=== PATIENT | female | born 1990 | race Caucasian/White ===

== ENCOUNTER 2017-09-24 11:52 | Emergency (ER) | payer MEDICAID ==
[~2017-09-24] VITALS: Ht 160 cm; Wt 56.7 kg
--- NOTE | 2017-09-24 12:14 | NUR ---
SAMANTHA QA SOFTWARE TESTER AT BEDSIDE FOR EVAL.
--- NOTE | 2017-09-24 12:25 | NUR ---
OUTSIDE INSTALLATION MACHINIST AT BEDSIDE FOR BLOOD DRAW.
[2017-09-24 12:30] LABS: BASOPHILS # (AUTO) 0.1 /CMM (0.0-0.2); EOSINOPHILS # (AUTO) 0.1 /CMM (0.0-0.7); MONOCYTES # (AUTO) 1.1 /CMM (0.1-1.30); RDW COEFFICIENT OF VARIATION 13.7 (11.5-15.0)
[2017-09-24] MEDS ORDERED: IV NS 0.9% 1,000 ML BAG IV ONE (12:30)
[2017-09-24 12:34] LABS: BASOPHILS % (AUTO) 1.1 % (0.0-2.0); EOSINOPHILS % (AUTO) 1.3 % (0.0-6.0); HEMATOCRIT 39 % (33-45); LYMPHOCYTES % (AUTO) 16.2 % (20.0-44.0); MEAN CORPUSCULAR HEMOGLOBIN 35 PG (26.0-33.0); MEAN CORPUSCULAR HGB CONC 34 g/dl (31.0-36.0); MEAN CORPUSCULAR VOLUME 103 fL (82-100); MONOCYTES % (AUTO) 17.4 % (2.0-12.0); NEUTROPHILS # (AUTO) 4.2 /CMM (1.8-8.9); PLATELET COUNT (AUTO) 151 /CMM (150-450); RED BLOOD CELL COUNT(AUTO) 3.75 MIL/uL (4.0-5.2); WHITE BLOOD COUNT (AUTO) 6.5 K/uL (4.3-11.0)
--- NOTE | 2017-09-24 12:35 | NUR ---
PT TO RADIOLOGY FOR HEAD CT SCAN VIA WHEELCHAIR.
[2017-09-24 12:44] LABS: INR 0.89 (0.87-1.13); PROTHROMBIN TIME 9.3 SECS (9.5-12.7)
[2017-09-24 12:48] LABS: ALBUMIN 3.7 g/dL (3.4-5.0); BILIRUBIN,DIRECT 0.3 mg/dL (0.0-0.2); BILIRUBIN,TOTAL 0.8 mg/dL (0.2-1.0); CALCIUM, SERUM 9.3 mg/dL (8.5-10.1); CREATININE 0.6 mg/dL (0.6-1.3)
[2017-09-24 12:49] LABS: POTASSIUM 2.7 mmol/L (3.5-5.1)
[2017-09-24] MEDS ORDERED: POTASSIUM CHLORIDE 20 MEQ TAB.PRT.SR PO ONE ×3 (12:54→13:00)
[2017-09-24 13:26] LABS: APPEARANCE,URINE Clear (CLEAR); BILIRUBIN,URINE MODERATE (NEGATIVE); BLOOD, URINE Negative Ery/uL (NEGATIVE); COLOR,URINE Dark (YELLOW); KETONES,URINE 40 (NEGATIVE); LEUKOCYTE ESTERASE ,URINE Trace (NEGATIVE); NITRITE, URINE Negative (NEGATIVE); PROTEIN,URINE 30 mg/dl (NEGATIVE); UGLUCOSE Negative (NEGATIVE)
[2017-09-24 13:30] LABS: BACTERIA,URINE Few /HPF (None Seen); RBC,URINE 0-2 /HPF (0-2); SQUAMOUS EPITHELIAL CELL,UR Few /HPF (None Seen)
[2017-09-24 13:32] LABS: D-DIMER 0.22 mg/L(FEU (0.17-0.50)
[2017-09-24 14:21] VITALS: BP 97/84
--- NOTE | 2017-09-24 14:21 | NUR ---
Patient discharged to home in stable condition. Written and verbal after care instructions given. Patient verbalizes understanding of instruction.IV removed. Catheter intact and site benign. Pressure and 4x4 applied to site. No bleeding noted.
== END 2017-09-24 14:22 | disposition home or self-care (01) ==
LOC: ER 11:54
DX: E87.6 Hypokalemia (principal); R74.0 Nonspecific elevation of levels of transaminase and lactic acid dehydrogenase [LDH]; M79.81 Nontraumatic hematoma of soft tissue; F41.9 Anxiety disorder, unspecified; F17.200 Nicotine dependence, unspecified, uncomplicated; R79.1 Abnormal coagulation profile; R40.4 Transient alteration of awareness
CPT/HCPCS: 36415; 70450; 71010; 80048; 80076; 80305; 81001; 83615; 84703; 85025; 85378; 85385; 85730; 86880; 93005; 99285; A4606; J7030; Z7610; 81000-TC

== ENCOUNTER 2019-02-08 19:17 | Emergency (ER) | payer SELFPAY ==
[~2019-02-08] VITALS: Ht 162.6 cm; Wt 61.7 kg
[2019-02-08] MEDS ORDERED: LORAZEPAM INJ 2 MG/ML VIAL IV ONE ×2 (20:00→21:00)
[2019-02-08] MEDS ORDERED: IV NS 0.9% 1,000 ML BAG IV ONE (20:00)
[2019-02-08] MEDS ORDERED: ONDANSETRON HCL/PF 4 MG/2 ML VIAL IV ONE (20:00)
[2019-02-08] MEDS ORDERED: ONDANSETRON HCL/PF 4 MG/2 ML VIAL ONE (20:03)
[2019-02-08] MEDS ORDERED: LORAZEPAM INJ 2 MG/ML VIAL ONE ×2 (20:04→20:48)
[2019-02-08 20:14] LABS: BASOPHILS % (AUTO) 0.5 % (0.0-2.0); EOSINOPHILS % (AUTO) 0.6 % (0.0-6.0); HEMATOCRIT 39 % (33-45); HEMOGLOBIN 13.3 g/dL (11.5-14.8); LYMPHOCYTES # (AUTO) 1.5 /CMM (0.8-4.8); LYMPHOCYTES % (AUTO) 41.5 % (20.0-44.0); MEAN CORPUSCULAR HGB CONC 34 g/dl (31.0-36.0); MEAN CORPUSCULAR VOLUME 102 fL (82-100); MONOCYTES # (AUTO) 0.4 /CMM (0.1-1.30); MONOCYTES % (AUTO) 9.9 % (2.0-12.0); NEUTROPHILS # (AUTO) 1.7 /CMM (1.8-8.9); NEUTROPHILS % (AUTO) 47.5 % (43.0-81.0); PLATELET COUNT (AUTO) 156 /CMM (150-450); RED BLOOD CELL COUNT(AUTO) 3.82 MIL/uL (4.0-5.2); WHITE BLOOD COUNT (AUTO) 3.6 K/uL (4.3-11.0)
[2019-02-08 20:31] LABS: CALCIUM, SERUM 8.9 mg/dL (8.5-10.1); CREATININE 0.5 mg/dL (0.6-1.3); POTASSIUM 4.3 mmol/L (3.5-5.1)
[2019-02-08 20:36] LABS: ALBUMIN 3.9 g/dL (3.4-5.0); BILIRUBIN,DIRECT 0.1 mg/dL (0.0-0.2); BILIRUBIN,TOTAL 0.4 mg/dL (0.2-1.0); TOTAL PROTEIN, SERUM 8.1 g/dL (6.4-8.2)
[2019-02-08 22:17] VITALS: BP 125/72
== END 2019-02-08 21:50 | disposition home or self-care (01) ==
LOC: ER 19:20
DX: F10.129 Alcohol abuse with intoxication, unspecified (principal); R11.2 Nausea with vomiting, unspecified; F41.9 Anxiety disorder, unspecified; F17.200 Nicotine dependence, unspecified, uncomplicated; Y90.9 Presence of alcohol in blood, level not specified
CPT/HCPCS: 36415; 80048; 80076; 83690; 85025; 96361; 96374; 96375; 96376; 99283; J2060 ×2; J2405; J7030

== ENCOUNTER 2019-03-16 09:28 | Emergency (ER) | payer SELFPAY ==
[~2019-03-16] VITALS: Ht 160 cm; Wt 57.2 kg
--- NOTE | 2019-03-16 10:05 | NUR ---
BIB SELF FOR ALCOHOL WITHDRAWAL, NO ETOH FOR 28 HRS PER PT. TREMORS, ANXIETY & ABD PAIN NO VOMITING AND DIARRHEA PER PT, +NAUSEA, TO ER BED 10, HOOKED TO MONITOR, CHANGED TO GOWN, PROVIDED W WARM BLANKET, ONEYDA GARBER AT BEDSIDE
[2019-03-16] MEDS ORDERED: FOLIC ACID 1 MG TABLET ONE (10:17)
[2019-03-16] MEDS ORDERED: THIAMINE HCL 100 MG TABLET ONE (10:18)
[2019-03-16] MEDS ORDERED: IV D5/0.45 NACL 500 ML IV ONE (10:30)
[2019-03-16] MEDS ORDERED: DIAZEPAM 5 MG/ML 2 ML DISP.SYRIN IV ONE ×2 (10:30→12:00)
[2019-03-16] MEDS ORDERED: FOLIC ACID 1 MG TABLET PO ONE (10:30)
[2019-03-16] MEDS ORDERED: IV NS 0.9% 1,000 ML BAG IV ONE (10:30)
[2019-03-16] MEDS ORDERED: THIAMINE HCL 100 MG TABLET PO ONE (10:30)
[2019-03-16 10:32] LABS: BASOPHILS % (AUTO) 0.7 % (0.0-2.0); EOSINOPHILS % (AUTO) 0.1 % (0.0-6.0); HEMATOCRIT 42 % (33-45); HEMOGLOBIN 14.4 g/dL (11.5-14.8); LYMPHOCYTES # (AUTO) 0.9 /CMM (0.8-4.8); LYMPHOCYTES % (AUTO) 12.9 % (20.0-44.0); MEAN CORPUSCULAR HGB CONC 34 g/dl (31.0-36.0); MEAN CORPUSCULAR VOLUME 101 fL (82-100); MONOCYTES # (AUTO) 0.4 /CMM (0.1-1.30); MONOCYTES % (AUTO) 6.2 % (2.0-12.0); NEUTROPHILS # (AUTO) 5.5 /CMM (1.8-8.9); NEUTROPHILS % (AUTO) 80.1 % (43.0-81.0); PLATELET COUNT (AUTO) 205 /CMM (150-450); RED BLOOD CELL COUNT(AUTO) 4.13 MIL/uL (4.0-5.2); WHITE BLOOD COUNT (AUTO) 6.9 K/uL (4.3-11.0)
[2019-03-16 10:41] LABS: CALCIUM, SERUM 8.8 mg/dL (8.5-10.1); CREATININE 0.7 mg/dL (0.6-1.3)
[2019-03-16 10:46] LABS: ALBUMIN 4.4 g/dL (3.4-5.0); BILIRUBIN,DIRECT 0.3 mg/dL (0.0-0.2); BILIRUBIN,TOTAL 1.3 mg/dL (0.2-1.0); TOTAL PROTEIN, SERUM 8.3 g/dL (6.4-8.2)
[2019-03-16] MEDS ORDERED: DIAZEPAM 5 MG/ML 2 ML DISP.SYRIN ONE ×2 (11:05→12:04)
[2019-03-16] MEDS ORDERED: ONDANSETRON HCL/PF 4 MG/2 ML VIAL IV ONE (12:00)
[2019-03-16] MEDS ORDERED: KETOROLAC TROMETHAMINE INJ 30 MG/ML VIAL IV ONE (12:00)
[2019-03-16] MEDS ORDERED: ONDANSETRON HCL/PF 4 MG/2 ML VIAL ONE (12:03)
[2019-03-16] MEDS ORDERED: KETOROLAC TROMETHAMINE INJ 30 MG/ML VIAL ONE (12:03)
[2019-03-16] MEDS ORDERED: CHLORDIAZEPOXIDE HCL 25 MG CAPSULE PO ONE (12:30)
[2019-03-16] MEDS ORDERED: CHLORDIAZEPOXIDE HCL 25 MG CAPSULE ONE (12:55)
--- NOTE | 2019-03-16 13:24 | NUR ---
Provided w substance abuse resources. IV removed. Catheter intact and site benign. Pressure and 4x4 applied to site. No bleeding noted.Patient discharged to home in stable condition. Written and verbal after care instructions given. Patient verbalizes understanding of instruction.
[2019-03-16 13:28] VITALS: BP 126/81
== END 2019-03-16 13:29 | disposition home or self-care (01) ==
LOC: ER 09:30
DX: F10.239 Alcohol dependence with withdrawal, unspecified (principal); E86.0 Dehydration; F41.9 Anxiety disorder, unspecified; F17.200 Nicotine dependence, unspecified, uncomplicated; Y90.9 Presence of alcohol in blood, level not specified
CPT/HCPCS: 36415; 80048; 80076; 83690; 84703; 85025; 96361; 96374; 96375; 96376; 99284; J1885; J2405; J3360 ×2; J3490 ×2; J7030

== ENCOUNTER 2019-04-09 16:57 | Emergency (ER) | payer SELFPAY ==
[~2019-04-09] VITALS: Ht 162.6 cm; Wt 59.0 kg
--- NOTE | 2019-04-09 17:30 | NUR ---
CAME IN FOR ANXIETY, ETOH, LAST ALCOHOL INTAKE 10 HRS AGO. TO ER BED 10, HOOKED TO MONITOR, CHANGED TO GOWN, PROVIDED W WARM BLANKET, AWAITING MD MCKINNEY.
--- NOTE | 2019-04-09 17:37 | NUR ---
MEDICARE COORDINATOR DEGRASSE AT BEDSIDE
[2019-04-09] MEDS ORDERED: LORAZEPAM INJ 2 MG/ML VIAL ONE ×2 (17:55→23:22)
[2019-04-09] MEDS ORDERED: IV NS 0.9% 1,000 ML BAG IV ONE (18:00)
[2019-04-09] MEDS ORDERED: LORAZEPAM INJ 2 MG/ML VIAL IVP ONE (18:00)
[2019-04-09 18:09] LABS: BASOPHILS % (AUTO) 0.7 % (0.0-2.0); EOSINOPHILS % (AUTO) 0.4 % (0.0-6.0); HEMATOCRIT 45 % (33-45); HEMOGLOBIN 15.1 g/dL (11.5-14.8); LYMPHOCYTES # (AUTO) 2.5 /CMM (0.8-4.8); LYMPHOCYTES % (AUTO) 38.1 % (20.0-44.0); MEAN CORPUSCULAR HGB CONC 34 g/dl (31.0-36.0); MEAN CORPUSCULAR VOLUME 102 fL (82-100); MONOCYTES # (AUTO) 0.4 /CMM (0.1-1.30); NEUTROPHILS # (AUTO) 3.6 /CMM (1.8-8.9); NEUTROPHILS % (AUTO) 54.8 % (43.0-81.0); PLATELET COUNT (AUTO) 289 /CMM (150-450); RED BLOOD CELL COUNT(AUTO) 4.38 MIL/uL (4.0-5.2); WHITE BLOOD COUNT (AUTO) 6.6 K/uL (4.3-11.0)
[2019-04-09 18:10] LABS: APPEARANCE,URINE Clear (CLEAR); BILIRUBIN,URINE Negative (NEGATIVE); BLOOD, URINE Negative Ery/uL (NEGATIVE); COLOR,URINE Yellow (YELLOW); KETONES,URINE 40 (NEGATIVE); LEUKOCYTE ESTERASE ,URINE Negative (NEGATIVE); NITRITE, URINE Negative (NEGATIVE); PROTEIN,URINE Trace mg/dl (NEGATIVE); UGLUCOSE Negative (NEGATIVE); UROBILINOGEN,URINE 0.2 EU/dL (0.2)
[2019-04-09 18:16] LABS: RBC,URINE 0-2 /HPF (0-2); WBC,URINE 0-2 /HPF (0-3)
[2019-04-09 18:17] LABS: CALCIUM, SERUM 8.8 mg/dL (8.5-10.1); CARBON DIOXIDE 23 mmol/L (21-32); CHLORIDE 102 mmol/L (98-107); CREATININE 0.6 mg/dL (0.6-1.3); GLUCOSE 85 mg/dL (74-106); POTASSIUM 3.9 mmol/L (3.5-5.1); SODIUM SERUM 144 mmol/L (136-145); UREA NITROGEN, BLOOD 10 mg/dL (7-18)
[2019-04-09 18:17] LABS: BACTERIA,URINE Rare /HPF (None Seen); MUCUS,URINE Few /LPF (None Seen); SQUAMOUS EPITHELIAL CELL,UR Few /HPF (None Seen); URINE AMORPHOUS URATE Few /HPF (None Seen)
[2019-04-09 18:24] LABS: ALANINE AMINOTRANSFERASE 51 U/L (12-78); ALCOHOL, BLOOD 397 mg/dL (0-0); ALKALINE PHOSPHATASE 52 U/L (46-116); ASPARTATE AMINOTRANSFERASE 75 U/L (15-37); BILIRUBIN,DIRECT 0.1 mg/dL (0.0-0.2); BILIRUBIN,TOTAL 0.3 mg/dL (0.2-1.0); TOTAL PROTEIN, SERUM 8.1 g/dL (6.4-8.2)
[2019-04-09 18:26] LABS: ACETAMINOPHEN < 5 ug/ml (10-30); SALICYLATE 1.7 mg/dL (2.8-20.0)
[2019-04-09] MEDS ORDERED: IBUPROFEN 400 MG TABLET ONE (18:26)
[2019-04-09] MEDS ORDERED: IBUPROFEN 400 MG TABLET PO ONE (18:30)
[2019-04-09] MEDS ORDERED: FOLIC ACID 1 MG TABLET PO ONE (19:00)
[2019-04-09] MEDS ORDERED: THIAMINE HCL 100 MG TABLET PO ONE (19:00)
[2019-04-09] MEDS ORDERED: THIAMINE HCL 100 MG TABLET ONE (19:04)
[2019-04-09] MEDS ORDERED: FOLIC ACID 1 MG TABLET ONE (19:04)
--- NOTE | 2019-04-09 19:25 | NUR ---
ROOM MATE: JUNO JIMENEZ [phone]
--- NOTE | 2019-04-09 19:44 | NUR ---
REPORT GIVEN TO RUDY HENLEY FOR VERENA
--- NOTE | 2019-04-09 20:10 | NUR ---
RECEIVED PT FROM KALE GRANT FOR VERENA. PT IN BED SLEEPING. NAD
[2019-04-09] MEDS ORDERED: LORAZEPAM INJ 2 MG/ML VIAL IV ONE (23:30)
--- NOTE | 2019-04-10 02:08 | NUR ---
Omar soriano in ED - 04/10/19 at 0209 by EFRAIN Nestor ARM MARILIN PLACED ON PT. ART AT BEDSIDE FOR EVAL
[2019-04-10 02:43] VITALS: BP 102/62
== END 2019-04-10 02:44 | disposition home or self-care (01) ==
LOC: ER 16:57
DX: F10.239 Alcohol dependence with withdrawal, unspecified (principal); F41.9 Anxiety disorder, unspecified; F17.200 Nicotine dependence, unspecified, uncomplicated; Y90.8 Blood alcohol level of 240 mg/100 ml or more
CPT/HCPCS: 36415; 80048; 80076; 80305; 80307; 80329; 81001; 84703; 85025; 96361; 96374; 96376; 99284; G0480; J2060 ×2; J7030; 81000-TC

== ENCOUNTER 2019-04-10 12:36 | Emergency (ER) | payer SELFPAY ==
[~2019-04-10] VITALS: Ht 162.6 cm; Wt 59.0 kg
[2019-04-10 12:47] VITALS: BP 115/80
[2019-04-10] MEDS ORDERED: IV NS 0.9% 1,000 ML BAG IV ONE (13:30)
[2019-04-10] MEDS ORDERED: LORAZEPAM INJ 2 MG/ML VIAL IVP ONE (13:30)
[2019-04-10 13:41] LABS: BASOPHILS % (AUTO) 0.4 % (0.0-2.0); EOSINOPHILS % (AUTO) 0.6 % (0.0-6.0); HEMATOCRIT 37 % (33-45); HEMOGLOBIN 12.6 g/dL (11.5-14.8); LYMPHOCYTES # (AUTO) 1.6 /CMM (0.8-4.8); LYMPHOCYTES % (AUTO) 21.5 % (20.0-44.0); MEAN CORPUSCULAR HGB CONC 34 g/dl (31.0-36.0); MEAN CORPUSCULAR VOLUME 102 fL (82-100); MONOCYTES # (AUTO) 0.8 /CMM (0.1-1.30); NEUTROPHILS # (AUTO) 4.8 /CMM (1.8-8.9); NEUTROPHILS % (AUTO) 66.5 % (43.0-81.0); PLATELET COUNT (AUTO) 213 /CMM (150-450); RED BLOOD CELL COUNT(AUTO) 3.65 MIL/uL (4.0-5.2); WHITE BLOOD COUNT (AUTO) 7.3 K/uL (4.3-11.0)
[2019-04-10 13:45] LABS: CALCIUM, SERUM 8.7 mg/dL (8.5-10.1); CARBON DIOXIDE 22 mmol/L (21-32); CHLORIDE 101 mmol/L (98-107); CREATININE 0.6 mg/dL (0.6-1.3); GLUCOSE 66 mg/dL (74-106); POTASSIUM 4.4 mmol/L (3.5-5.1); SODIUM SERUM 137 mmol/L (136-145); UREA NITROGEN, BLOOD 10 mg/dL (7-18)
[2019-04-10] MEDS ORDERED: LORAZEPAM INJ 2 MG/ML VIAL ONE (13:46)
[2019-04-10 13:51] LABS: ALANINE AMINOTRANSFERASE 75 U/L (12-78); ALBUMIN 3.5 g/dL (3.4-5.0); ALCOHOL, BLOOD < 3 mg/dL (0-0); ALKALINE PHOSPHATASE 49 U/L (46-116); ASPARTATE AMINOTRANSFERASE 126 U/L (15-37); BILIRUBIN,DIRECT 0.2 mg/dL (0.0-0.2); BILIRUBIN,TOTAL 1.3 mg/dL (0.2-1.0); TOTAL PROTEIN, SERUM 7.1 g/dL (6.4-8.2)
--- NOTE | 2019-04-10 13:58 | NUR ---
IV LINE ESTABLISHED ONL EFT AC G20.
[2019-04-10 13:59] LABS: APPEARANCE,URINE Slightly Cloudy (CLEAR); BILIRUBIN,URINE SMALL (NEGATIVE); BLOOD, URINE Negative Ery/uL (NEGATIVE); COLOR,URINE Yellow (YELLOW); KETONES,URINE >=160 (NEGATIVE); LEUKOCYTE ESTERASE ,URINE Negative (NEGATIVE); NITRITE, URINE Negative (NEGATIVE); PROTEIN,URINE 30 mg/dl (NEGATIVE); UGLUCOSE Negative (NEGATIVE); UROBILINOGEN,URINE 0.2 EU/dL (0.2)
[2019-04-10 14:01] LABS: BACTERIA,URINE Few /HPF (None Seen); RBC,URINE 0-2 /HPF (0-2); SQUAMOUS EPITHELIAL CELL,UR Few /HPF (None Seen); WBC,URINE 0-2 /HPF (0-3)
--- NOTE | 2019-04-10 15:00 | NUR ---
PIV REMOVED, Patient discharged to home in stable condition. Written and verbal after care instructions given. Patient verbalizes understanding of instruction.
== END 2019-04-10 17:07 | disposition home or self-care (01) ==
LOC: ER 12:36
DX: F10.239 Alcohol dependence with withdrawal, unspecified (principal); F41.9 Anxiety disorder, unspecified; F17.200 Nicotine dependence, unspecified, uncomplicated; E86.0 Dehydration; Y90.0 Blood alcohol level of less than 20 mg/100 ml
CPT/HCPCS: 36415; 80048; 80076; 80307; 81001; 84703; 85025; 96361; 96374; 99283; J2060; J7030; 81000-TC; G0480

== ENCOUNTER 2019-04-24 10:51 | Emergency (ER) | payer SELFPAY ==
[~2019-04-24] VITALS: Ht 162.6 cm; Wt 53.5 kg
--- NOTE | 2019-04-24 10:59 | NUR ---
pt bibself for alcohol withdrawals, pt aaox4, -sob, nad noted, pending md hyatt
[2019-04-24] MEDS ORDERED: LORAZEPAM INJ 2 MG/ML VIAL ONE (11:30)
[2019-04-24] MEDS ORDERED: LORAZEPAM INJ 2 MG/ML VIAL IV ONE (11:30)
[2019-04-24] MEDS ORDERED: IV NS 0.9% 1,000 ML BAG IV ONE (11:30)
[2019-04-24] MEDS ORDERED: KETOROLAC TROMETHAMINE INJ 30 MG/ML VIAL IV ONE (11:30)
[2019-04-24] MEDS ORDERED: ONDANSETRON HCL/PF 4 MG/2 ML VIAL IV ONE (11:30)
[2019-04-24] MEDS ORDERED: ONDANSETRON HCL/PF 4 MG/2 ML VIAL ONE (11:31)
[2019-04-24] MEDS ORDERED: KETOROLAC TROMETHAMINE INJ 60 MG/2 ML VIAL IM ONE (11:32)
[2019-04-24 11:38] LABS: BASOPHILS # (AUTO) 0.1 /CMM (0.0-0.2); EOSINOPHILS % (AUTO) 0.4 % (0.0-6.0); HEMATOCRIT 37 % (33-45); LYMPHOCYTES # (AUTO) 0.5 /CMM (0.8-4.8); LYMPHOCYTES % (AUTO) 7.9 % (20.0-44.0); MEAN CORPUSCULAR HGB CONC 35 g/dl (31.0-36.0); MEAN CORPUSCULAR VOLUME 99 fL (82-100); MONOCYTES # (AUTO) 0.4 /CMM (0.1-1.30); MONOCYTES % (AUTO) 5.8 % (2.0-12.0); NEUTROPHILS # (AUTO) 5.3 /CMM (1.8-8.9); NEUTROPHILS % (AUTO) 84.9 % (43.0-81.0); PLATELET COUNT (AUTO) 307 /CMM (150-450); RED BLOOD CELL COUNT(AUTO) 3.74 MIL/uL (4.0-5.2); WHITE BLOOD COUNT (AUTO) 6.2 K/uL (4.3-11.0)
[2019-04-24] MEDS ORDERED: THIAMINE HCL 100 MG TABLET ONE (11:41)
[2019-04-24] MEDS ORDERED: FOLIC ACID 1 MG TABLET ONE (11:41)
[2019-04-24 11:48] VITALS: BP 115/69
[2019-04-24 11:51] LABS: CALCIUM, SERUM 8.8 mg/dL (8.5-10.1); CREATININE 0.7 mg/dL (0.6-1.3)
--- NOTE | 2019-04-24 11:54 | NUR ---
RN NOTES PT RECEIVED ATIVAN 1 MG IV AND ZOFRAN 4MG IV AND NS BLOUS VIA L WRIST IV G 20
[2019-04-24 11:57] LABS: BILIRUBIN,DIRECT 0.4 mg/dL (0.0-0.2); BILIRUBIN,TOTAL 1.5 mg/dL (0.2-1.0)
[2019-04-24] MEDS ORDERED: THIAMINE HCL 100 MG TABLET PO ONE (12:00)
[2019-04-24] MEDS ORDERED: FOLIC ACID 1 MG TABLET PO ONE (12:00)
[2019-04-24 12:05] LABS: APPEARANCE,URINE Clear (CLEAR); BILIRUBIN,URINE MODERATE (NEGATIVE); BLOOD, URINE Large Ery/uL (NEGATIVE); KETONES,URINE >=160 (NEGATIVE); LEUKOCYTE ESTERASE ,URINE Negative (NEGATIVE); NITRITE, URINE Negative (NEGATIVE); PROTEIN,URINE >=300 mg/dl (NEGATIVE); UGLUCOSE Negative (NEGATIVE)
[2019-04-24 12:08] LABS: COLOR,URINE AMBER (YELLOW)
[2019-04-24 12:10] LABS: BACTERIA,URINE Few /HPF (None Seen); SQUAMOUS EPITHELIAL CELL,UR Few /HPF (None Seen)
--- NOTE | 2019-04-24 13:01 | NUR ---
Patient discharged to home in stable condition. Written and verbal after care instructions given. Patient verbalizes understanding of instruction. IV removed. Catheter intact and site benign. Pressure and 4x4 applied to site. No bleeding noted.
--- NOTE | 2019-04-30 18:25 | NUR ---
RN NOTES LATE ENTRY NS 1000CC IVF INFUSION STARTED AT 11:39 AND ENDED AT 12:39 ON 04/24/2019.
== END 2019-04-24 13:03 | disposition home or self-care (01) ==
LOC: ER 10:51
DX: F10.239 Alcohol dependence with withdrawal, unspecified (principal); K70.10 Alcoholic hepatitis without ascites; F41.9 Anxiety disorder, unspecified; F17.200 Nicotine dependence, unspecified, uncomplicated; R11.2 Nausea with vomiting, unspecified; Y90.1 Blood alcohol level of 20-39 mg/100 ml
CPT/HCPCS: 36415; 80048; 80076; 80307; 81001; 84703; 85025; 96361; 96374; 96375; 99283; J1885; J2060; J2405; J7030; 81000-TC; G0480

== ENCOUNTER 2019-06-06 02:42 | Emergency (ER) | payer MEDICAID ==
[~2019-06-06] VITALS: Ht 160 cm; Wt 55.3 kg
--- NOTE | 2019-06-06 02:58 | NUR ---
bibs for c/o alcohol withdrawal symptom including generalizing tremur . - SOB, - CP, - dizziness. pt was placed on a monitor, VSS. will cont to monitor ,
[2019-06-06] MEDS ORDERED: ONDANSETRON HCL/PF 4 MG/2 ML VIAL ONE (03:14)
[2019-06-06] MEDS ORDERED: Folic acid 1 MG/0.2 ML VIAL ONE (03:14)
[2019-06-06] MEDS ORDERED: Thiamine 100 MG/ML VIAL ONE (03:14)
[2019-06-06] MEDS ORDERED: LORAZEPAM INJ 2 MG/ML VIAL ONE (03:15)
--- NOTE | 2019-06-06 03:16 | NUR ---
Note undone in EDM - 06/06/19 at 0320 [address]Y [address]RE[address]. AAOX4. NAD NOTED, BREATHING EVEN AND UNLABORED. BIB W/ C/O "I TOOK TOO MUCH METH". PT REPORTS THAT HE SHOT UP 30CC OF METH. PT DENIES ANY CHEST PAIN. -N/V. NO SOB. AWAITING FOR EVAL. EMT AT BEDSIDE FOR EKG
[2019-06-06] MEDS ORDERED: IV NS 0.9% 1,000 ML BAG IV ONE (03:30)
[2019-06-06] MEDS ORDERED: Folic acid 1 MG in IV D5W 50 ML IV SCH (03:30)
[2019-06-06] MEDS ORDERED: Thiamine 100 MG in IV D5W 50 ML IV SCH (03:30)
[2019-06-06] MEDS ORDERED: LORAZEPAM INJ 2 MG/ML VIAL IV ONE (03:30)
[2019-06-06] MEDS ORDERED: ONDANSETRON HCL/PF 4 MG/2 ML VIAL IVP ONE (03:30)
[2019-06-06 03:34] LABS: BASOPHILS % (AUTO) 0.7 % (0.0-2.0); HEMATOCRIT 35 % (33-45); HEMOGLOBIN 12.1 g/dL (11.5-14.8); LYMPHOCYTES # (AUTO) 1.8 /CMM (0.8-4.8); LYMPHOCYTES % (AUTO) 44.9 % (20.0-44.0); MEAN CORPUSCULAR HGB CONC 35 g/dl (31.0-36.0); MEAN CORPUSCULAR VOLUME 100 fL (82-100); MONOCYTES # (AUTO) 0.4 /CMM (0.1-1.30); MONOCYTES % (AUTO) 10.4 % (2.0-12.0); NEUTROPHILS # (AUTO) 1.7 /CMM (1.8-8.9); PLATELET COUNT (AUTO) 109 /CMM (150-450); RED BLOOD CELL COUNT(AUTO) 3.49 MIL/uL (4.0-5.2); WHITE BLOOD COUNT (AUTO) 4.1 K/uL (4.3-11.0)
[2019-06-06 03:43] LABS: CALCIUM, SERUM 8.7 mg/dL (8.5-10.1); CREATININE 0.6 mg/dL (0.6-1.3); POTASSIUM 3.1 mmol/L (3.5-5.1)
[2019-06-06 03:51] LABS: ALBUMIN 3.7 g/dL (3.4-5.0); BILIRUBIN,DIRECT 0.2 mg/dL (0.0-0.2); BILIRUBIN,TOTAL 0.8 mg/dL (0.2-1.0); TOTAL PROTEIN, SERUM 7.2 g/dL (6.4-8.2)
--- NOTE | 2019-06-06 04:45 | NUR ---
IV removed. Catheter intact and site benign. Pressure and 4x4 applied to site. No bleeding noted. Patient discharged to home in stable condition. Written and verbal after care instructions given. Patient verbalizes understanding of instruction. family will provide ride back home.
[2019-06-06] MEDS ORDERED: POTASSIUM CHLORIDE 20 MEQ TAB.PRT.SR PO ONE ×2 (04:47→05:00)
[2019-06-06 04:54] VITALS: BP 104/75
== END 2019-06-06 04:54 | disposition home or self-care (01) ==
LOC: ER 02:44
DX: F10.239 Alcohol dependence with withdrawal, unspecified (principal); K70.10 Alcoholic hepatitis without ascites; E87.6 Hypokalemia; F41.9 Anxiety disorder, unspecified; F17.200 Nicotine dependence, unspecified, uncomplicated; Y90.9 Presence of alcohol in blood, level not specified
CPT/HCPCS: 36415; 80048; 80076; 83690; 85025; 96365; 96368; 96375; 99283; J2060; J2405; J3411; J3490; J7030; J7060

== ENCOUNTER 2019-07-09 23:36 | Emergency (ER) | payer MEDICAID ==
[~2019-07-09] VITALS: Ht 160 cm; Wt 53.5 kg
--- NOTE | 2019-07-10 00:01 | NUR ---
BIBF. C/O "HAD ALCOHOL AT 7PM TONIGHT. WITHDRAWLS NOW." -SOB VSS. AMBULATORY
[2019-07-10] MEDS ORDERED: LORAZEPAM INJ 2 MG/ML VIAL ONE ×2 (00:41→00:59)
[2019-07-10] MEDS ORDERED: LORAZEPAM INJ 2 MG/ML VIAL IVP ONE (01:00)
[2019-07-10] MEDS ORDERED: IV NS 0.9% 1,000 ML BAG IV ONE (01:00)
[2019-07-10 01:05] LABS: BASOPHILS # (AUTO) 0.1 /CMM (0.0-0.2); BASOPHILS % (AUTO) 0.9 % (0.0-2.0); EOSINOPHILS % (AUTO) 0.5 % (0.0-6.0); HEMATOCRIT 38 % (33-45); HEMOGLOBIN 13.1 g/dL (11.5-14.8); LYMPHOCYTES # (AUTO) 1.8 /CMM (0.8-4.8); LYMPHOCYTES % (AUTO) 29.6 % (20.0-44.0); MEAN CORPUSCULAR HGB CONC 34 g/dl (31.0-36.0); MEAN CORPUSCULAR VOLUME 104 fL (82-100); MONOCYTES # (AUTO) 0.9 /CMM (0.1-1.30); MONOCYTES % (AUTO) 14.1 % (2.0-12.0); NEUTROPHILS # (AUTO) 3.4 /CMM (1.8-8.9); NEUTROPHILS % (AUTO) 54.9 % (43.0-81.0); PLATELET COUNT (AUTO) 305 /CMM (150-450); RED BLOOD CELL COUNT(AUTO) 3.67 MIL/uL (4.0-5.2); WHITE BLOOD COUNT (AUTO) 6.1 K/uL (4.3-11.0)
[2019-07-10 01:23] LABS: CALCIUM, SERUM 9.2 mg/dL (8.5-10.1); CREATININE 0.7 mg/dL (0.6-1.3); POTASSIUM 3.8 mmol/L (3.5-5.1)
[2019-07-10 01:24] LABS: BILIRUBIN,DIRECT 0.3 mg/dL (0.0-0.2); BILIRUBIN,TOTAL 1.1 mg/dL (0.2-1.0); TOTAL PROTEIN, SERUM 7.6 g/dL (6.4-8.2)
[2019-07-10 01:32] LABS: SALICYLATE 0.3 mg/dL (2.8-20.0)
[2019-07-10] MEDS ORDERED: ONDANSETRON HCL/PF 4 MG/2 ML VIAL ONE (02:52)
[2019-07-10 04:06] VITALS: BP 118/76
--- NOTE | 2019-07-12 03:05 | NUR ---
PATIENT NAUSEOUS. DR JAVED AWARE. ORDERED 4MG ZOFRAN IV.
--- NOTE | 2019-07-12 03:22 | NUR ---
PATIENT NO LONGER COMPLAINING OF NAUSEA.
== END 2019-07-10 04:06 | disposition home or self-care (01) ==
LOC: ER 23:39
DX: F10.239 Alcohol dependence with withdrawal, unspecified (principal); F41.9 Anxiety disorder, unspecified; F17.200 Nicotine dependence, unspecified, uncomplicated; Y90.0 Blood alcohol level of less than 20 mg/100 ml
CPT/HCPCS: 36415; 80048; 80076; 80307; 80329; 85025; 96374; 99283; G0480; J2060; J2405; J7030

== ENCOUNTER 2019-09-17 09:20 | Emergency (ER) | payer MEDICAID ==
[~2019-09-17] VITALS: Ht 160 cm; Wt 56.7 kg
[2019-09-17] MEDS ORDERED: LORAZEPAM INJ 2 MG/ML VIAL ONE (09:38)
[2019-09-17 09:52] LABS: BASOPHILS # (AUTO) 0.1 /CMM (0.0-0.2); BASOPHILS % (AUTO) 0.6 % (0.0-2.0); EOSINOPHILS % (AUTO) 0.1 % (0.0-6.0); HEMATOCRIT 41 % (33-45); HEMOGLOBIN 13.6 g/dL (11.5-14.8); LYMPHOCYTES # (AUTO) 1.2 /CMM (0.8-4.8); LYMPHOCYTES % (AUTO) 12.6 % (20.0-44.0); MEAN CORPUSCULAR HGB CONC 34 g/dl (31.0-36.0); MEAN CORPUSCULAR VOLUME 102 fL (82-100); NEUTROPHILS # (AUTO) 7.4 /CMM (1.8-8.9); NEUTROPHILS % (AUTO) 76.7 % (43.0-81.0); PLATELET COUNT (AUTO) 302 /CMM (150-450); RED BLOOD CELL COUNT(AUTO) 3.99 MIL/uL (4.0-5.2); WHITE BLOOD COUNT (AUTO) 9.6 K/uL (4.3-11.0)
--- NOTE | 2019-09-17 09:52 | NUR ---
PATIENT CAMEIN TO THE ER C/O EPIGASTRIC PAIN, NAUSEA AND VOMITING X THIS AM. PT STATES "I AM HAVING ALCOHOL WITHDRAWAL". ON ROOM AIR, CONNECTED TO THE MONITOR AND PULSE OX. WILL CONTINUE TO MONITOR ACCORDINGLY.
[2019-09-17 09:53] LABS: APPEARANCE,URINE Slightly Cloudy (CLEAR); BILIRUBIN,URINE Negative (NEGATIVE); BLOOD, URINE Negative Ery/uL (NEGATIVE); COLOR,URINE Yellow (YELLOW); KETONES,URINE 40 (NEGATIVE); LEUKOCYTE ESTERASE ,URINE Negative (NEGATIVE); NITRITE, URINE Negative (NEGATIVE); PH,URINE >9.0 (5.0-8.0); PROTEIN,URINE 30 mg/dl (NEGATIVE); UGLUCOSE Negative (NEGATIVE)
--- NOTE | 2019-09-17 09:53 | NUR ---
urine collected and sent to lab
[2019-09-17] MEDS ORDERED: IV NS 0.9% 1,000 ML BAG IV ONE (10:00)
[2019-09-17] MEDS ORDERED: LORAZEPAM INJ 2 MG/ML VIAL IVP ONE (10:00)
[2019-09-17 10:05] LABS: RBC,URINE 0-2 /HPF (0-2); WBC,URINE 0-2 /HPF (0-3)
[2019-09-17 10:06] LABS: BACTERIA,URINE Rare /HPF (None Seen); SQUAMOUS EPITHELIAL CELL,UR Moderate /HPF (None Seen)
[2019-09-17 10:08] LABS: ALANINE AMINOTRANSFERASE 33 U/L (12-78); ALBUMIN 4.1 g/dL (3.4-5.0); ALCOHOL, BLOOD < 3 mg/dL (0-0); ALKALINE PHOSPHATASE 60 U/L (46-116); ASPARTATE AMINOTRANSFERASE 37 U/L (15-37); BILIRUBIN,DIRECT 0.3 mg/dL (0.0-0.2); BILIRUBIN,TOTAL 1.4 mg/dL (0.2-1.0); CALCIUM, SERUM 9.3 mg/dL (8.5-10.1); CARBON DIOXIDE 26 mmol/L (21-32); CHLORIDE 97 mmol/L (98-107); CREATININE 0.6 mg/dL (0.6-1.3); GLUCOSE 97 mg/dL (74-106); POTASSIUM 3.9 mmol/L (3.5-5.1); SODIUM SERUM 135 mmol/L (136-145); TOTAL PROTEIN, SERUM 8.3 g/dL (6.4-8.2); UREA NITROGEN, BLOOD 10 mg/dL (7-18)
[2019-09-17 10:14] LABS: ACETAMINOPHEN < 10 ug/ml (10-30); SALICYLATE < 0.2 mg/dL (2.8-20.0)
--- NOTE | 2019-09-17 10:24 | NUR ---
patient in bed, resting, verbalized feels alot better than earlier, still connected to the monitor, will continue to monitor accordingly.
[2019-09-17 10:33] VITALS: BP 116/77
== END 2019-09-17 10:33 | disposition home or self-care (01) ==
LOC: ER 09:31
DX: F10.129 Alcohol abuse with intoxication, unspecified (principal); R11.2 Nausea with vomiting, unspecified; F41.9 Anxiety disorder, unspecified; F17.200 Nicotine dependence, unspecified, uncomplicated; Y90.0 Blood alcohol level of less than 20 mg/100 ml
CPT/HCPCS: 36415; 80048; 80076; 80305; 80307; 80329; 81001; 84703; 85025; 96361; 96374; 99283; G0480; J2060; J7030; 81000-TC

== ENCOUNTER 2019-09-26 08:25 | Emergency (ER) | payer MEDICAID ==
[~2019-09-26] VITALS: Ht 162.6 cm; Wt 55.3 kg
--- NOTE | 2019-09-26 08:30 | NUR ---
BIB RA 88 FROM HOME, DISTAL AMPUTATION OF LEFT INDEX FINGER CRUSHED BY A DOOR PER PT. PATIENT A/OX4, CRYING AND MOANING IN PAIN. PATIENT KEPT COMFORTABLE IN BED. DR. OSCAR AT BEDSIDE FOR EVAL.
[2019-09-26] MEDS ORDERED: LIDOCAINE HCL/MPF 1% 30 ML VIAL IJ ONE (08:31)
[2019-09-26] MEDS ORDERED: LORAZEPAM 1 MG TABLET ONE (08:37)
[2019-09-26] MEDS ORDERED: TDAP [DIPH/PERTUSSIS/TET] 0.5 ML VIAL IM ONE ×2 (08:44→09:00)
[2019-09-26] MEDS ORDERED: LORAZEPAM INJ 2 MG/ML VIAL IM ONE (09:00)
[2019-09-26] MEDS ORDERED: LIDOCAINE 1% INJ 50 ML MDV IJ ONE (09:00)
[2019-09-26] MEDS ORDERED: LORAZEPAM 1 MG TABLET PO ONE (09:00)
--- NOTE | 2019-09-26 09:38 | NUR ---
Left index finger cleansed with normal salline and wrapped up with xeroform and gauze. Finger splint applied.
--- NOTE | 2019-09-26 10:30 | NUR ---
PATIENT RESTING, ASLEEP IN BED, NO DISTRESS NOTED.
--- NOTE | 2019-09-26 13:33 | NUR ---
PATIENT AWAKE AND ALERT, ORIENTED X4, AMBULATORY WITH STEADY GAIT. PATIENT'S VITALS STABLE. BANDAGE ON LEFT INDEX FINGER INTACT. SPLIT INTACT. NO DISTRESS NOTED. Patient discharged to home in stable condition. Written and verbal after care instructions given. Patient verbalizes understanding of instruction. PATIENT TOOK LYFT FOR TRANSPORTATION.
[2019-09-26 13:34] VITALS: BP 102/68
== END 2019-09-26 13:35 | disposition home or self-care (01) ==
LOC: ER 08:30
DX: S62.631A Displaced fracture of distal phalanx of left index finger, initial encounter for closed fracture (principal); S61.301A Unspecified open wound of left index finger with damage to nail, initial encounter; F41.9 Anxiety disorder, unspecified; F10.10 Alcohol abuse, uncomplicated; F17.200 Nicotine dependence, unspecified, uncomplicated; F14.90 Cocaine use, unspecified, uncomplicated; Y90.9 Presence of alcohol in blood, level not specified; X58.XXXA Exposure to other specified factors, initial encounter; Y93.89 Activity, other specified; Y92.89 Other specified places as the place of occurrence of the external cause; Y99.8 Other external cause status
CPT/HCPCS: 29130; 73130; 90471; 90715; 99284; A6403; J3490

== ENCOUNTER 2019-12-04 10:18 | Emergency (ER) | payer MEDICAID ==
[~2019-12-04] VITALS: Ht 162.6 cm; Wt 55.8 kg
--- NOTE | 2019-12-04 10:45 | NUR ---
Tremors from alcohol withdrawal. Patient a/ox4, breathing even and unlabored, no with s/sx of withdrawal, appears to be anxious, and c/o nausea. Patient attached to the front desk monitor.
[2019-12-04] MEDS ORDERED: LORAZEPAM INJ 2 MG/ML VIAL ONE (11:13)
[2019-12-04] MEDS ORDERED: ONDANSETRON HCL/PF 4 MG/2 ML VIAL ONE (11:24)
[2019-12-04 11:26] LABS: BASOPHILS % (AUTO) 0.4 % (0.0-2.0); EOSINOPHILS % (AUTO) 0.2 % (0.0-6.0); HEMATOCRIT 37 % (33-45); HEMOGLOBIN 12.5 g/dL (11.5-14.8); LYMPHOCYTES # (AUTO) 0.7 /CMM (0.8-4.8); LYMPHOCYTES % (AUTO) 12.3 % (20.0-44.0); MEAN CORPUSCULAR HGB CONC 34 g/dl (31.0-36.0); MEAN CORPUSCULAR VOLUME 99 fL (82-100); MONOCYTES # (AUTO) 0.6 /CMM (0.1-1.30); MONOCYTES % (AUTO) 9.2 % (2.0-12.0); NEUTROPHILS # (AUTO) 4.8 /CMM (1.8-8.9); NEUTROPHILS % (AUTO) 77.9 % (43.0-81.0); PLATELET COUNT (AUTO) 161 /CMM (150-450); WHITE BLOOD COUNT (AUTO) 6.1 K/uL (4.3-11.0)
[2019-12-04] MEDS ORDERED: IV NS 0.9% 1,000 ML BAG IV ONE (11:30)
[2019-12-04] MEDS ORDERED: LORAZEPAM INJ 2 MG/ML VIAL IVP ONE (11:30)
[2019-12-04 11:32] LABS: CARBON DIOXIDE 25 mmol/L (21-32); CHLORIDE 99 mmol/L (98-107); CREATININE 0.5 mg/dL (0.6-1.3); GLUCOSE 80 mg/dL (74-106); POTASSIUM 3.9 mmol/L (3.5-5.1); SODIUM SERUM 138 mmol/L (136-145); UREA NITROGEN, BLOOD 13 mg/dL (7-18)
[2019-12-04] MEDS ORDERED: ONDANSETRON HCL/PF 4 MG/2 ML VIAL IV ONE (11:35)
[2019-12-04 11:38] LABS: ALANINE AMINOTRANSFERASE 34 U/L (12-78); ALBUMIN 3.8 g/dL (3.4-5.0); ALCOHOL, BLOOD < 3 mg/dL (0-0); ALKALINE PHOSPHATASE 55 U/L (46-116); ASPARTATE AMINOTRANSFERASE 37 U/L (15-37); BILIRUBIN,DIRECT 0.2 mg/dL (0.0-0.2); TOTAL PROTEIN, SERUM 7.5 g/dL (6.4-8.2)
[2019-12-04 11:39] LABS: ACETAMINOPHEN 0 ug/ml (10-30); SALICYLATE 0.6 mg/dL (2.8-20.0)
[2019-12-04 11:41] LABS: APPEARANCE,URINE Slightly Cloudy (CLEAR); BILIRUBIN,URINE MODERATE (NEGATIVE); BLOOD, URINE Large Ery/uL (NEGATIVE); COLOR,URINE Pink (YELLOW); KETONES,URINE >=160 (NEGATIVE); LEUKOCYTE ESTERASE ,URINE Negative (NEGATIVE); NITRITE, URINE Negative (NEGATIVE); PROTEIN,URINE 100 mg/dl (NEGATIVE); UGLUCOSE Negative (NEGATIVE)
[2019-12-04 12:07] LABS: RBC,URINE 51-80 /HPF (0-2)
[2019-12-04 12:08] LABS: BACTERIA,URINE Few /HPF (None Seen); SQUAMOUS EPITHELIAL CELL,UR Few /HPF (None Seen)
[2019-12-04] MEDS ORDERED: LORAZEPAM 1 MG TABLET PO ONE (13:00)
[2019-12-04] MEDS ORDERED: KETOROLAC TROMETHAMINE INJ 30 MG/ML VIAL IV ONE (13:00)
[2019-12-04] MEDS ORDERED: KETOROLAC TROMETHAMINE INJ 30 MG/ML VIAL ONE (13:02)
[2019-12-04] MEDS ORDERED: LORAZEPAM 1 MG TABLET ONE (13:02)
--- NOTE | 2019-12-04 13:50 | NUR ---
[facility] CALLED FOR EVAL PER DR PEACE
--- NOTE | 2019-12-04 14:00 | NUR ---
Social service consult requested by Dr. Giraldo for alcohol abuse. Per MD notes, pt is a 29-year-old female who presented to emergency Department with alcohol withdrawal. Pt has a history of withdrawal as well as withdrawal seizures. She states she stopped drinking about 24 hours ago. CORPORATE ATTORNEY met with the pt bedside. CORPORATE ATTORNEY introduced self and explained her role. Pt is alert and oriented x 4. Pt is pleasant and cooperative with CORPORATE ATTORNEY during the assessment. Pt's mood is congruent. Pt resides with a roommate in [place]. Pt is currently unemployed. Pt informed CORPORATE ATTORNEY she has been drinking since she was 17 years of age but in the last 6 to 7 years she has been drinking heavily. Pt drinks a bottle of vodka daily. Pt stated, she started drinking at 9AM and finished a whole bottle of vodka. Pt has never been to an alcohol treatment program before. Pt has a history of Depression and Anxiety and takes medication for her anxiety but couldn't remember the name of the medication. Pt denies suicidal and homicidal ideations and visual/auditory hallucinations at this time. CORPORATE ATTORNEY provided active listening and supportive counseling to the pt. CORPORATE ATTORNEY encouraged to attend a detox program and gave her the following mental health/alcohol treatment program referrals: [facility], [phone], [facility] [phone] and [facility] [phone] in addition to [facility] [place] [phone], [facility] [phone] and also to [facility] [phone], [facility] [phone], [facility] [phone], [facility] detox residential and [phone]. No other social service needs are requested at this time. CORPORATE ATTORNEY updated KALE Pickering and with updated discharge plan. Pt to call a Lyft to get back home.
--- NOTE | 2019-12-04 14:10 | NUR ---
patient stated she feels better, less tremors, and less anxiety. Patient a/ox4, breathing even and unlabored, no sob noted, May JULIOW at bedside. IV removed. Catheter intact and site benign. Pressure and 4x4 applied to site. No bleeding noted. Patient discharged to home in stable condition. Written and verbal after care instructions given. Patient verbalizes understanding of instruction. Instructed patient not to drive.
[2019-12-04 14:13] VITALS: BP 117/85
== END 2019-12-04 14:37 | disposition home or self-care (01) ==
LOC: ER 10:18
DX: F10.239 Alcohol dependence with withdrawal, unspecified (principal); F41.9 Anxiety disorder, unspecified; F17.200 Nicotine dependence, unspecified, uncomplicated; Y90.9 Presence of alcohol in blood, level not specified
CPT/HCPCS: 36415; 80048; 80076; 80305; 80307; 80329; 81001; 84702; 85025; 96374; 96375; 99283; G0480; J1885; J2060; J2405; J7030; 81000-TC

== ENCOUNTER 2020-01-07 09:33 | Emergency (ER) | payer MEDICAID ==
[~2020-01-07] VITALS: Ht 162.6 cm; Wt 61.2 kg
--- NOTE | 2020-01-07 09:38 | NUR ---
SELF PRESENTS TO ED C/O GENERALIZED ACHES, CHILLS, ABDOMINAL DISCOMFORT SINCE THIS MORNING. PT STATES WIDRAWING FRM ALCOHOL AND CONCERN ABOUT HAVING SEIZURE. PLACED ON MONITOR. AWAITING MD MCKINNEY.
[2020-01-07] MEDS ORDERED: IV NS 0.9% 1,000 ML BAG IV ONE (10:00)
[2020-01-07] MEDS ORDERED: LORAZEPAM INJ 2 MG/ML VIAL IVP ONE (10:00)
[2020-01-07] MEDS ORDERED: LORAZEPAM INJ 2 MG/ML VIAL ONE (10:05)
[2020-01-07 10:08] LABS: BASOPHILS % (AUTO) 0.8 % (0.0-2.0); HEMATOCRIT 41 % (33-45); HEMOGLOBIN 13.6 g/dL (11.5-14.8); LYMPHOCYTES # (AUTO) 1.1 /CMM (0.8-4.8); MEAN CORPUSCULAR HGB CONC 33 g/dl (31.0-36.0); MEAN CORPUSCULAR VOLUME 100 fL (82-100); MONOCYTES # (AUTO) 0.4 /CMM (0.1-1.30); MONOCYTES % (AUTO) 6.1 % (2.0-12.0); NEUTROPHILS # (AUTO) 4.6 /CMM (1.8-8.9); NEUTROPHILS % (AUTO) 75.1 % (43.0-81.0); PLATELET COUNT (AUTO) 289 /CMM (150-450); WHITE BLOOD COUNT (AUTO) 6.1 K/uL (4.3-11.0)
[2020-01-07] MEDS ORDERED: HYDR50TA61 PO (10:10)
[2020-01-07] MEDS ORDERED: ESCI10TA PO (10:10)
[2020-01-07 10:15] LABS: CALCIUM, SERUM 8.7 mg/dL (8.5-10.1); CREATININE 0.8 mg/dL (0.6-1.3); POTASSIUM 3.5 mmol/L (3.5-5.1)
[2020-01-07 10:19] LABS: APPEARANCE,URINE Clear (CLEAR); BILIRUBIN,URINE Negative (NEGATIVE); BLOOD, URINE Negative Ery/uL (NEGATIVE); COLOR,URINE Yellow (YELLOW); KETONES,URINE >=160 (NEGATIVE); LEUKOCYTE ESTERASE ,URINE Negative (NEGATIVE); NITRITE, URINE Negative (NEGATIVE); PH,URINE 5.5 (5.0-8.0); PROTEIN,URINE 30 mg/dl (NEGATIVE); UGLUCOSE Negative (NEGATIVE); UROBILINOGEN,URINE 0.2 EU/dL (0.2)
[2020-01-07 10:21] LABS: ALBUMIN 4.1 g/dL (3.4-5.0); BILIRUBIN,DIRECT 0.2 mg/dL (0.0-0.2); BILIRUBIN,TOTAL 0.6 mg/dL (0.2-1.0)
[2020-01-07 10:48] LABS: BACTERIA,URINE Rare /HPF (None Seen); RBC,URINE 0-2 /HPF (0-2); WBC,URINE 0-2 /HPF (0-3)
[2020-01-07 10:49] LABS: SQUAMOUS EPITHELIAL CELL,UR 0-2 /HPF (None Seen)
--- NOTE | 2020-01-07 11:18 | NUR ---
Written and verbal after care instructions given. Patient verbalizes understanding of instruction. WAITING FOR IVF TO COMPLETE, THEN PT WILL BE READY FOR DC.
--- NOTE | 2020-01-07 11:50 | NUR ---
IV removed. Catheter intact and site benign. Pressure and 4x4 applied to site. No bleeding noted. PT AMBULATES WITH STEADY GAIT.
[2020-01-07 12:02] VITALS: BP 111/62
== END 2020-01-07 12:03 | disposition home or self-care (01) ==
LOC: ER 09:38
DX: F10.239 Alcohol dependence with withdrawal, unspecified (principal); R11.2 Nausea with vomiting, unspecified; Y90.6 Blood alcohol level of 120-199 mg/100 ml; Z79.899 Other long term (current) drug therapy
CPT/HCPCS: 36415; 80048; 80076; 80305; 80307; 80329; 81001; 84703; 85025; 96361; 96374; 99283; G0480; J2060; J7030; 81000-TC

== ENCOUNTER 2020-01-30 13:19 | Emergency (ER) | payer MEDICAID ==
[~2020-01-30] VITALS: Ht 160 cm; Wt 62.6 kg
[~2020-01-30 13:19] MED LIST: ESCI10TA PO; HYDR50TA61 PO
--- NOTE | 2020-01-30 13:45 | NUR ---
c/o mid back pain started this morning 10/10 pain scale. REPORTS SHARP, CONSTANT PAIN, HURTS MORE WHEN TAKING DEEP BREATH, AND DIFFICULTY WALKING. ALSO REPORTS EXPERIENCING ALCOHOL WITHDRAWAL. NO ACUTE DISTRESS NOTED. MADE COMFORTABLE AND READY FOR EVAL.
--- NOTE | 2020-01-30 13:50 | NUR ---
BRAD DAY AT BEDSIDE FOR EVAL.
--- NOTE | 2020-01-30 13:55 | NUR ---
URINE SENT TO STAT LAB
[2020-01-30] MEDS ORDERED: MORPHINE SULFATE INJ 2 MG/ML DISP.SYRIN IV ONE (14:00)
[2020-01-30] MEDS ORDERED: DEXAMETHASONE SOD PHOSPHATE 4 MG/ML VIAL IV ONE (14:00)
[2020-01-30] MEDS ORDERED: ONDANSETRON HCL 4 MG/5 ML SOLUTION PO ONE (14:00)
[2020-01-30] MEDS ORDERED: ONDANSETRON HCL/PF 4 MG/2 ML VIAL ONE (14:03)
[2020-01-30] MEDS ORDERED: DEXAMETHASONE SOD PHOSPHATE 10 MG/ML VIAL ONE (14:03)
[2020-01-30] MEDS ORDERED: MORPHINE SULFATE INJ 4 MG/ML DISP.SYRIN ONE (14:03)
[2020-01-30 14:04] LABS: APPEARANCE,URINE Clear (CLEAR); BILIRUBIN,URINE Negative (NEGATIVE); BLOOD, URINE Negative Ery/uL (NEGATIVE); COLOR,URINE Yellow (YELLOW); KETONES,URINE Negative (NEGATIVE); LEUKOCYTE ESTERASE ,URINE Negative (NEGATIVE); NITRITE, URINE Negative (NEGATIVE); PROTEIN,URINE Negative (NEGATIVE); UGLUCOSE Negative (NEGATIVE); UROBILINOGEN,URINE 0.2 EU/dL (0.2)
--- NOTE | 2020-01-30 14:15 | NUR ---
IV LINE ESTABLISHED. BLOOD DRAWN AND SENT TO STAT LAB. MEDS GIVEN, PT OLIVA WELL.
[2020-01-30 14:21] LABS: BASOPHILS # (AUTO) 0.1 /CMM (0.0-0.2); BASOPHILS % (AUTO) 0.7 % (0.0-2.0); EOSINOPHILS % (AUTO) 0.3 % (0.0-6.0); HEMATOCRIT 38 % (33-45); HEMOGLOBIN 12.9 g/dL (11.5-14.8); LYMPHOCYTES # (AUTO) 2.4 /CMM (0.8-4.8); LYMPHOCYTES % (AUTO) 22.3 % (20.0-44.0); MEAN CORPUSCULAR HGB CONC 34 g/dl (31.0-36.0); MEAN CORPUSCULAR VOLUME 100 fL (82-100); MONOCYTES # (AUTO) 0.7 /CMM (0.1-1.30); MONOCYTES % (AUTO) 6.6 % (2.0-12.0); NEUTROPHILS # (AUTO) 7.6 /CMM (1.8-8.9); NEUTROPHILS % (AUTO) 70.1 % (43.0-81.0); PLATELET COUNT (AUTO) 267 /CMM (150-450); WHITE BLOOD COUNT (AUTO) 10.9 K/uL (4.3-11.0)
--- NOTE | 2020-01-30 14:21 | NUR ---
PT TAKEN TO RADIOLOGY VIA
[2020-01-30 14:23] LABS: CALCIUM, SERUM 8.9 mg/dL (8.5-10.1); CREATININE 0.6 mg/dL (0.6-1.3)
[2020-01-30] MEDS ORDERED: ONDANSETRON HCL/PF 4 MG/2 ML VIAL IV ONE (14:30)
[2020-01-30] MEDS ORDERED: CT SWABBABLE VALVE TRANS SET 1 EA INFUS.SET MC ONE (14:34)
[2020-01-30] MEDS ORDERED: IOHEXOL-300 100 ML VIAL IV ONE (14:34)
[2020-01-30] MEDS ORDERED: IV NS 0.9% 250 ML IV ONE (14:34)
--- NOTE | 2020-01-30 14:50 | NUR ---
PT BACK FROM RADIOLOGY. STATES FEELING BETTER BUT STILL VERY SENSITIVE. PA NOTIFIED
[2020-01-30 15:27] VITALS: BP 117/69
--- NOTE | 2020-01-30 15:27 | NUR ---
IV removed. Catheter intact and site benign. Pressure and 4x4 applied to site. No bleeding noted.Patient discharged to home in stable condition. Written and verbal after care instructions given. Patient verbalizes understanding of instruction.
== END 2020-01-30 15:28 | disposition home or self-care (01) ==
LOC: ER 13:19
DX: M54.6 Pain in thoracic spine (principal); Z79.899 Other long term (current) drug therapy
CPT/HCPCS: 36415; 71100; 74177; 80048; 81001; 84703; 85025; 96374; 96375; 99285; J1100; J2270; J2405; J7050; Q9967; 81000-TC

== ENCOUNTER 2020-03-18 17:41 | Emergency (ER) | payer MEDICAID ==
[~2020-03-18] VITALS: Ht 162.6 cm; Wt 64.4 kg
--- NOTE | 2020-03-18 17:53 | NUR ---
patient came in to the er c/o alcohol withdrawal, last drink last night. On room air, breathing evenly and unlabored. connected to the monitor and pulse ox. kept comfortable, will continue to monitor accordingly.
--- NOTE | 2020-03-18 18:17 | NUR ---
IV LINE ON R HAND 20G. BLOOD DRAWN AND GIVEN TO WHEEL AND PINION INSPECTOR
[2020-03-18 18:24] LABS: BASOPHILS # (AUTO) 0.1 /CMM (0.0-0.2); BASOPHILS % (AUTO) 0.7 % (0.0-2.0); EOSINOPHILS % (AUTO) 0.4 % (0.0-6.0); HEMATOCRIT 42 % (33-45); HEMOGLOBIN 13.9 g/dL (11.5-14.8); LYMPHOCYTES # (AUTO) 2.4 /CMM (0.8-4.8); LYMPHOCYTES % (AUTO) 31.3 % (20.0-44.0); MEAN CORPUSCULAR HGB CONC 33 g/dl (31.0-36.0); MEAN CORPUSCULAR VOLUME 100 fL (82-100); MONOCYTES # (AUTO) 0.6 /CMM (0.1-1.30); MONOCYTES % (AUTO) 8.2 % (2.0-12.0); NEUTROPHILS # (AUTO) 4.5 /CMM (1.8-8.9); NEUTROPHILS % (AUTO) 59.4 % (43.0-81.0); PLATELET COUNT (AUTO) 411 /CMM (150-450); RED BLOOD CELL COUNT(AUTO) 4.21 MIL/uL (4.0-5.2); WHITE BLOOD COUNT (AUTO) 7.6 K/uL (4.3-11.0)
[2020-03-18] MEDS ORDERED: LORAZEPAM INJ 2 MG/ML VIAL IVP ONE (18:30)
[2020-03-18] MEDS ORDERED: IV NS 0.9% 1,000 ML BAG IV ONE (18:30)
[2020-03-18 18:31] LABS: CALCIUM, SERUM 8.4 mg/dL (8.5-10.1); CREATININE 0.8 mg/dL (0.6-1.3); POTASSIUM 3.7 mmol/L (3.5-5.1)
[2020-03-18] MEDS ORDERED: LORAZEPAM INJ 2 MG/ML VIAL ONE (18:40)
--- NOTE | 2020-03-18 18:51 | NUR ---
pt complained of nausea. md made aware. verbal order received to give pt zofran 4mg iv x 1. noted and carried out.
[2020-03-18] MEDS ORDERED: ONDANSETRON HCL/PF 4 MG/2 ML VIAL ONE (18:52)
[2020-03-18 18:58] LABS: APPEARANCE,URINE Clear (CLEAR); BILIRUBIN,URINE Negative (NEGATIVE); BLOOD, URINE Negative Ery/uL (NEGATIVE); COLOR,URINE Yellow (YELLOW); KETONES,URINE Negative (NEGATIVE); LEUKOCYTE ESTERASE ,URINE Negative (NEGATIVE); NITRITE, URINE Negative (NEGATIVE); PROTEIN,URINE 30 mg/dl (NEGATIVE); UGLUCOSE Negative (NEGATIVE)
[2020-03-18 19:00] LABS: BACTERIA,URINE Few /HPF (None Seen); RBC,URINE 0-2 /HPF (0-2); SQUAMOUS EPITHELIAL CELL,UR Few /HPF (None Seen); WBC,URINE 0-2 /HPF (0-3)
[2020-03-18] MEDS ORDERED: ONDANSETRON HCL/PF 4 MG/2 ML VIAL IV ONE (19:00)
[2020-03-18] MEDS ORDERED: IV NS 0.9% 1,000 ML IV ONE (21:00)
--- NOTE | 2020-03-18 21:52 | NUR ---
Patient discharged to home in stable condition. Written and verbal after care instructions given. Patient verbalizes understanding of instruction.IV removed. Catheter intact and site benign. Pressure and 4x4 applied to site. No bleeding noted. Pt ambulatory with a steady gait
[2020-03-18 21:54] VITALS: BP 105/68
== END 2020-03-18 21:54 | disposition home or self-care (01) ==
LOC: ER 17:43
DX: F41.9 Anxiety disorder, unspecified (principal); F10.239 Alcohol dependence with withdrawal, unspecified; R00.0 Tachycardia, unspecified; R11.2 Nausea with vomiting, unspecified; Y90.9 Presence of alcohol in blood, level not specified; Z79.899 Other long term (current) drug therapy
CPT/HCPCS: 36415; 80048; 81001; 84703; 85025; 96361; 96374; 96375; 99285; J2060; J2405; J7030; 81000-TC; 92980; 92982; C1725; C1769; C1887; G0500

== ENCOUNTER 2020-03-19 15:29 | Emergency (ER) | payer MEDICAID ==
[~2020-03-19] VITALS: Ht 162.6 cm; Wt 63.5 kg
--- NOTE | 2020-03-19 15:53 | NUR ---
[employer] AT BEDSIDE TALKING TO PT
--- NOTE | 2020-03-19 16:03 | NUR ---
LYNDSEY FROM HOME TO ER BED 13. SMELLS OF ALCOHOL, ADMITS TO DRINKING HALF A BOTTLE OF VODKA. NOT IN RESP DISTRESS. BROUGHT IN FOR ALCOHOL INTOXICATION AND VERBALIZATION OF FEELING SUICIDAL W/O ANY SPECIFIC PLAN. PT VERBALIZES THAT SHE IS FEELING SAD AND DEPRESSED ABOUT HER DRINKING. PT IS STRIPPED OF CLOTHING, GOWN AND BELONGINGS PLACED IN LOCKER LOCATED IN UTILITY ROOM. 1:1 SITTER AT BEDSIDE. WAS AT BEDSIDE FOR EVAL.
[2020-03-19 16:41] LABS: BASOPHILS # (AUTO) 0.1 /CMM (0.0-0.2); CALCIUM, SERUM 8.3 mg/dL (8.5-10.1); CREATININE 0.7 mg/dL (0.6-1.3); EOSINOPHILS % (AUTO) 1.9 % (0.0-6.0); HEMATOCRIT 40 % (33-45); HEMOGLOBIN 13.3 g/dL (11.5-14.8); LYMPHOCYTES # (AUTO) 2.4 /CMM (0.8-4.8); LYMPHOCYTES % (AUTO) 35.6 % (20.0-44.0); MEAN CORPUSCULAR HGB CONC 33 g/dl (31.0-36.0); MEAN CORPUSCULAR VOLUME 100 fL (82-100); MONOCYTES # (AUTO) 0.7 /CMM (0.1-1.30); MONOCYTES % (AUTO) 11.2 % (2.0-12.0); NEUTROPHILS # (AUTO) 3.4 /CMM (1.8-8.9); NEUTROPHILS % (AUTO) 50.3 % (43.0-81.0); PLATELET COUNT (AUTO) 319 /CMM (150-450); POTASSIUM 3.8 mmol/L (3.5-5.1); RED BLOOD CELL COUNT(AUTO) 4.03 MIL/uL (4.0-5.2); WHITE BLOOD COUNT (AUTO) 6.7 K/uL (4.3-11.0)
[2020-03-19 16:50] LABS: ALBUMIN 3.6 g/dL (3.4-5.0); BILIRUBIN,DIRECT 0.1 mg/dL (0.0-0.2); BILIRUBIN,TOTAL 0.4 mg/dL (0.2-1.0); TOTAL PROTEIN, SERUM 7.3 g/dL (6.4-8.2)
[2020-03-19 18:40] LABS: APPEARANCE,URINE Clear (CLEAR); BILIRUBIN,URINE Negative (NEGATIVE); BLOOD, URINE Negative Ery/uL (NEGATIVE); COLOR,URINE Yellow (YELLOW); KETONES,URINE Negative (NEGATIVE); LEUKOCYTE ESTERASE ,URINE Negative (NEGATIVE); NITRITE, URINE Negative (NEGATIVE); PH,URINE 6.5 (5.0-8.0); PROTEIN,URINE Negative (NEGATIVE); UGLUCOSE Negative (NEGATIVE)
--- NOTE | 2020-03-19 19:22 | NUR ---
Omar soriano in [facility] - 03/19/20 at 1923 by SHIELA NURSING SUP GAVE BED 103.
[2020-03-19 19:33] LABS: BACTERIA,URINE Rare /HPF (None Seen); RBC,URINE 0-2 /HPF (0-2); SQUAMOUS EPITHELIAL CELL,UR Few /HPF (None Seen); WBC,URINE 0-2 /HPF (0-3)
--- NOTE | 2020-03-19 20:18 | NUR ---
PT AWAKE. REASSESSED. PT VERBALIZED THAT SHE IS NOT GOING TO HURT HERSELF NOR KILL HERSELF. SHE VERBALIZED THAT SHE SAID THAT SHE WAS SUICIDAL EARLIER BECAUSE SHE IS UPSET ABOUT HER DRINKING.
--- NOTE | 2020-03-19 22:47 | NUR ---
pt c/o of nausea. md made aware. received order to give zpfran 4mg po. noted and carried out
[2020-03-19] MEDS ORDERED: ONDANSETRON 4 MG TAB.RAPDIS ONE (22:48)
[2020-03-19] MEDS ORDERED: ONDANSETRON 4 MG TAB.RAPDIS PO ONE (23:00)
[2020-03-20] MEDS ORDERED: ONDANSETRON HCL/PF 4 MG/2 ML VIAL IVP ONE (01:00)
[2020-03-20] MEDS ORDERED: IV NS 0.9% 1,000 ML BAG IV ONE (01:00)
[2020-03-20] MEDS ORDERED: ONDANSETRON HCL/PF 4 MG/2 ML VIAL ONE (01:00)
--- NOTE | 2020-03-20 02:08 | NUR ---
PATIENT IS ASLEEP. EASILY AROUSABLE THROUGH TACTILE AND VERBAL STIMULI. BREATHING EVENLY AND UNLABORED ON ROOM AIR. SITTER AT BEDSIDE.
--- NOTE | 2020-03-20 04:47 | NUR ---
ART AT BEDSIDE FROM CRISIS
--- NOTE | 2020-03-20 05:01 | NUR ---
PT CLEARED FOR PSYCH PER ART YIFAN COBOSW.
--- NOTE | 2020-03-20 05:23 | NUR ---
Patient discharged to home in stable condition. Written and verbal after care instructions given. Patient verbalizes understanding of instruction. ambulatory with a steady gait noted. pt aaox4 no acute distress noted, resp even and unlabored. advice pt not to dirve or operate any machinery due to alcohol intoxication. pt denies is/hi at this time.
[2020-03-20 05:27] VITALS: BP 134/69
== END 2020-03-20 05:28 | disposition home or self-care (01) ==
LOC: ER 15:30
DX: R45.851 Suicidal ideations (principal); F10.239 Alcohol dependence with withdrawal, unspecified; F41.9 Anxiety disorder, unspecified; F17.200 Nicotine dependence, unspecified, uncomplicated; Z79.899 Other long term (current) drug therapy; Y90.8 Blood alcohol level of 240 mg/100 ml or more
CPT/HCPCS: 36415 ×2; 80048; 80076; 80305; 80307 ×2; 80329; 81001; 85025; 96374; 99285; C1887; G0480; J2405; J7030; Q0162; 81000-TC

== ENCOUNTER 2020-03-31 18:59 | Emergency (ER) | payer MEDICAID ==
[~2020-03-31] VITALS: Ht 165.1 cm; Wt 59.9 kg
--- NOTE | 2020-03-31 19:12 | NUR ---
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
[2020-03-31 19:23] LABS: BASOPHILS # (AUTO) 0.1 /CMM (0.0-0.2); BASOPHILS % (AUTO) 1.7 % (0.0-2.0); EOSINOPHILS % (AUTO) 0.4 % (0.0-6.0); HEMATOCRIT 40 % (33-45); HEMOGLOBIN 13.5 g/dL (11.5-14.8); LYMPHOCYTES # (AUTO) 2.1 /CMM (0.8-4.8); MEAN CORPUSCULAR HGB CONC 34 g/dl (31.0-36.0); MEAN CORPUSCULAR VOLUME 99 fL (82-100); MONOCYTES # (AUTO) 0.6 /CMM (0.1-1.30); MONOCYTES % (AUTO) 11.5 % (2.0-12.0); NEUTROPHILS # (AUTO) 2.7 /CMM (1.8-8.9); NEUTROPHILS % (AUTO) 49.4 % (43.0-81.0); PLATELET COUNT (AUTO) 363 /CMM (150-450); RED BLOOD CELL COUNT(AUTO) 4.03 MIL/uL (4.0-5.2); WHITE BLOOD COUNT (AUTO) 5.5 K/uL (4.3-11.0)
[2020-03-31] MEDS ORDERED: LORAZEPAM INJ 2 MG/ML VIAL IV ONE (19:30)
[2020-03-31] MEDS ORDERED: IV NS 0.9% 1,000 ML BAG IV ONE (19:30)
[2020-03-31 20:05] LABS: CALCIUM, SERUM 8.8 mg/dL (8.5-10.1); CREATININE 0.8 mg/dL (0.6-1.3); POTASSIUM 3.8 mmol/L (3.5-5.1)
[2020-03-31 20:13] LABS: ALBUMIN 3.9 g/dL (3.4-5.0); BILIRUBIN,DIRECT 0.1 mg/dL (0.0-0.2); BILIRUBIN,TOTAL 0.4 mg/dL (0.2-1.0); TOTAL PROTEIN, SERUM 7.7 g/dL (6.4-8.2)
--- NOTE | 2020-03-31 21:10 | NUR ---
pt verbalizing wanting to go home, per shruti ellis, pt may go if pt gets someone to pick her up. pt aware. decideded to stay
--- NOTE | 2020-03-31 21:11 | NUR ---
pt moved to bed 13.
[2020-03-31 22:14] LABS: APPEARANCE,URINE CLEAR (CLEAR); BILIRUBIN,URINE NEGATIVE (NEGATIVE); BLOOD, URINE NEGATIVE Ery/uL (NEGATIVE); COLOR,URINE YELLOW (YELLOW); KETONES,URINE >=80 (NEGATIVE); LEUKOCYTE ESTERASE ,URINE NEGATIVE (NEGATIVE); NITRITE, URINE NEGATIVE (NEGATIVE); PROTEIN,URINE TRACE mg/dl (NEGATIVE); UGLUCOSE NEGATIVE (NEGATIVE); UROBILINOGEN,URINE 0.2 EU/dL (0.2)
[2020-03-31 22:19] LABS: BACTERIA,URINE Few /HPF (None Seen); RBC,URINE 0-2 /HPF (0-2); SQUAMOUS EPITHELIAL CELL,UR Moderate /HPF (None Seen); WBC,URINE 0-2 /HPF (0-3)
[2020-03-31] MEDS ORDERED: IBUPROFEN 600 MG TABLET PO ONE ×2 (22:56→23:00)
--- NOTE | 2020-04-01 | NUR ---
PT ETOH LEVEL HIGH, PER YUN SALINAS, PT MAY LEAVE IS SOMEONE PICK HER UP
--- NOTE | 2020-04-01 02:00 | NUR ---
PT SLEEPING, AROUSABLE, -SOB, VSS
[2020-04-01] MEDS ORDERED: ONDANSETRON HCL/PF 4 MG/2 ML VIAL ONE ×2 (04:37→05:21)
[2020-04-01] MEDS ORDERED: ONDANSETRON HCL/PF - ER 4 MG/2 ML VIAL IV ONE (05:00)
--- NOTE | 2020-04-01 05:24 | NUR ---
C/O OF NAUSEA, -VOMITTING NOTED, ZOFRAN IVP ORDERED AND GIVEN
[2020-04-01] MEDS ORDERED: LORAZEPAM 1 MG TABLET ONE ×2 (06:46→06:50)
[2020-04-01] MEDS ORDERED: IBUPROFEN 600 MG TABLET PO ONE ×2 (06:50→07:00)
[2020-04-01] MEDS ORDERED: LORAZEPAM 1 MG TABLET PO ONE ×2 (07:00)
[2020-04-01 08:10] VITALS: BP 106/58
== END 2020-04-01 08:11 | disposition home or self-care (01) ==
LOC: ER 19:00
DX: F10.129 Alcohol abuse with intoxication, unspecified (principal); K70.10 Alcoholic hepatitis without ascites; R11.2 Nausea with vomiting, unspecified; F41.9 Anxiety disorder, unspecified; Y90.8 Blood alcohol level of 240 mg/100 ml or more; Z79.899 Other long term (current) drug therapy
CPT/HCPCS: 36415; 80048; 80076; 80305; 80307; 80329; 81001; 84703; 85025; 96361; 96374; 99285; G0480; J2405 ×3; 81000-TC

== ENCOUNTER 2020-05-31 08:16 | Emergency (ER) | payer MEDICAID ==
[~2020-05-31] VITALS: Ht 160 cm; Wt 59.0 kg
--- NOTE | 2020-05-31 08:16 | NUR ---
PT BIB SELF C/O ALCOHOL WITHDRAWAL. PT IS AAOX4, NOT IN RESPIRATORY DISTRESS, HOOKED TO QA AUTOMATION ARCHITECT, KEPT RESTED AND COMFORTABLE. WILL CONTINUE TO MONITOR.
--- NOTE | 2020-05-31 08:38 | NUR ---
URINE SPECIMEN COLLECTED AND SENT TO LAB.
--- NOTE | 2020-05-31 08:45 | NUR ---
IV LINE ESTABLISHED BLOOD DRAWN AND SENT TO LAB.
[2020-05-31] MEDS ORDERED: ONDANSETRON HCL/PF 4 MG/2 ML VIAL ONE (08:47)
[2020-05-31] MEDS ORDERED: LORAZEPAM INJ 2 MG/ML VIAL IV ONE (09:00)
[2020-05-31] MEDS ORDERED: ONDANSETRON HCL/PF 4 MG/2 ML VIAL IVP ONE (09:00)
[2020-05-31] MEDS ORDERED: IV NS 0.9% 1,000 ML BAG IV ONE ×2 (09:00→10:00)
[2020-05-31 09:04] LABS: APPEARANCE,URINE Clear (CLEAR); BASOPHILS # (AUTO) 0.1 /CMM (0.0-0.2); BASOPHILS % (AUTO) 0.9 % (0.0-2.0); BILIRUBIN,URINE SMALL (NEGATIVE); BLOOD, URINE Negative Ery/uL (NEGATIVE); COLOR,URINE Yellow (YELLOW); EOSINOPHILS % (AUTO) 0.1 % (0.0-6.0); HEMATOCRIT 43 % (33-45); HEMOGLOBIN 14.3 g/dL (11.5-14.8); KETONES,URINE 40 (NEGATIVE); LEUKOCYTE ESTERASE ,URINE Negative (NEGATIVE); LYMPHOCYTES # (AUTO) 1.8 /CMM (0.8-4.8); LYMPHOCYTES % (AUTO) 14.5 % (20.0-44.0); MEAN CORPUSCULAR HGB CONC 34 g/dl (31.0-36.0); MEAN CORPUSCULAR VOLUME 99 fL (82-100); MONOCYTES # (AUTO) 1.4 /CMM (0.1-1.30); MONOCYTES % (AUTO) 11.2 % (2.0-12.0); NEUTROPHILS % (AUTO) 73.3 % (43.0-81.0); NITRITE, URINE Negative (NEGATIVE); PLATELET COUNT (AUTO) 406 /CMM (150-450); PROTEIN,URINE 100 mg/dl (NEGATIVE); RED BLOOD CELL COUNT(AUTO) 4.29 MIL/uL (4.0-5.2); UGLUCOSE Negative (NEGATIVE); WHITE BLOOD COUNT (AUTO) 12.2 K/uL (4.3-11.0)
[2020-05-31] MEDS ORDERED: LORAZEPAM INJ 2 MG/ML VIAL ONE (09:09)
[2020-05-31 09:14] LABS: MAGNESIUM 1.6 mg/dL (1.8-2.4)
[2020-05-31 09:28] LABS: BACTERIA,URINE Rare /HPF (None Seen); RBC,URINE NONE SEEN /HPF (0-2); SQUAMOUS EPITHELIAL CELL,UR Few /HPF (None Seen); WBC,URINE NONE SEEN /HPF (0-3)
[2020-05-31 09:32] LABS: ALANINE AMINOTRANSFERASE 68 U/L (12-78); ALCOHOL, BLOOD 50 mg/dL (0-0); ALKALINE PHOSPHATASE 83 U/L (46-116); ASPARTATE AMINOTRANSFERASE 43 U/L (15-37); BILIRUBIN,DIRECT 0.2 mg/dL (0.0-0.2); BILIRUBIN,TOTAL 0.5 mg/dL (0.2-1.0); CALCIUM, SERUM 9.3 mg/dL (8.5-10.1); CARBON DIOXIDE 25 mmol/L (21-32); CHLORIDE 97 mmol/L (98-107); CREATININE 0.7 mg/dL (0.6-1.3); GLUCOSE 98 mg/dL (74-106); POTASSIUM 3.7 mmol/L (3.5-5.1); SALICYLATE 1.9 mg/dL (2.8-20.0); SODIUM SERUM 138 mmol/L (136-145); UREA NITROGEN, BLOOD 12 mg/dL (7-18)
[2020-05-31 09:33] LABS: ACETAMINOPHEN < 2 ug/ml (10-30)
[2020-05-31] MEDS ORDERED: THIAMINE HCL 100 MG TABLET PO ONE (10:00)
[2020-05-31] MEDS ORDERED: FOLIC ACID 1 MG TABLET PO ONE (10:00)
[2020-05-31] MEDS ORDERED: FOLIC ACID 1 MG TABLET ONE (10:10)
[2020-05-31] MEDS ORDERED: THIAMINE HCL 100 MG TABLET ONE (10:10)
[2020-05-31 11:01] VITALS: BP 119/84
--- NOTE | 2020-05-31 11:01 | NUR ---
IV removed. Catheter intact and site benign. Pressure and 4x4 applied to site. No bleeding noted. Patient discharged to home in stable condition. Written and verbal after care instructions given. Patient verbalizes understanding of instruction.
[2020-05-31] MEDS ORDERED: ONDANSETRON 4 MG TAB.RAPDIS ONE (11:10)
[2020-05-31] MEDS ORDERED: ONDANSETRON 4 MG TAB.RAPDIS PO ONE (11:30)
== END 2020-05-31 11:01 | disposition home or self-care (01) ==
LOC: ER 08:22
DX: F10.239 Alcohol dependence with withdrawal, unspecified (principal); F41.9 Anxiety disorder, unspecified; F17.200 Nicotine dependence, unspecified, uncomplicated; Z79.899 Other long term (current) drug therapy; Y90.2 Blood alcohol level of 40-59 mg/100 ml
CPT/HCPCS: 36415; 80048; 80076; 80305; 80307; 80329; 81001; 83690; 83735; 84703; 85025; 96374; 96375; 99284; G0480; J2060; J2405; J7030; Q0162; 81000-TC

== ENCOUNTER 2021-01-27 10:59 | Inpatient (IN) | payer MEDICAID ==
[~2021-01-27] VITALS: Ht 160 cm; Wt 74.8 kg
[2021-01-27] MEDS ORDERED: THIAMINE HCL 100 MG TABLET PO ONE (11:30)
[2021-01-27] MEDS ORDERED: IV NS 0.9% 1,000 ML BAG IV ONE (11:30)
[2021-01-27] MEDS ORDERED: LORAZEPAM 1 MG TABLET PO ONE (11:30)
[2021-01-27] MEDS ORDERED: FOLIC ACID 1 MG TABLET PO ONE (11:30)
[2021-01-27] MEDS ORDERED: CHLORDIAZEPOXIDE HCL 25 MG CAPSULE PO ONE (11:30)
[2021-01-27] MEDS ORDERED: THIAMINE HCL 100 MG TABLET ONE (11:37)
[2021-01-27] MEDS ORDERED: CHLORDIAZEPOXIDE HCL 25 MG CAPSULE ONE (11:37)
[2021-01-27] MEDS ORDERED: LORAZEPAM 1 MG TABLET ONE (11:37)
[2021-01-27] MEDS ORDERED: FOLIC ACID 1 MG TABLET ONE (11:37)
[2021-01-27 11:46] LABS: BASOPHILS % (AUTO) 0.4 % (0.0-2.0); EOSINOPHILS % (AUTO) 2.2 % (0.0-6.0); HEMATOCRIT 37 % (33-45); HEMOGLOBIN 12.7 g/dL (11.5-14.8); LYMPHOCYTES % (AUTO) 18.8 % (20.0-44.0); MEAN CORPUSCULAR HGB CONC 34 g/dl (31.0-36.0); MEAN CORPUSCULAR VOLUME 96 fL (82-100); MONOCYTES # (AUTO) 0.4 /CMM (0.1-1.30); MONOCYTES % (AUTO) 8.2 % (2.0-12.0); NEUTROPHILS # (AUTO) 3.6 /CMM (1.8-8.9); NEUTROPHILS % (AUTO) 70.4 % (43.0-81.0); PLATELET COUNT (AUTO) 121 /CMM (150-450); RED BLOOD CELL COUNT(AUTO) 3.91 MIL/uL (4.0-5.2); WHITE BLOOD COUNT (AUTO) 5.1 K/uL (4.3-11.0)
--- NOTE | 2021-01-27 11:50 | NUR ---
bibs from home to er bed 12. aaox4. not in resp distress. ambulatory. came in for alcohol withdrawal. pt reports binge drinking for 11 days last drinking was yesterday noon. pt is noted with tremor. verbalizing anxiety and nerviousness. md was at the bedside for eval. orders received, noted and carried out. iv line on l hand 20g, blood drawn and sent to lab. pt on monitor
[2021-01-27 11:59] LABS: CALCIUM, SERUM 9.2 mg/dL (8.5-10.1); CREATININE 0.7 mg/dL (0.6-1.3); POTASSIUM 3.3 mmol/L (3.5-5.1)
[2021-01-27] MEDS ORDERED: ONDANSETRON HCL/PF 4 MG/2 ML VIAL ONE (12:00)
[2021-01-27 12:05] LABS: ALBUMIN 4.1 g/dL (3.4-5.0); BILIRUBIN,DIRECT 0.3 mg/dL (0.0-0.2); BILIRUBIN,TOTAL 1.2 mg/dL (0.2-1.0); TOTAL PROTEIN, SERUM 8.1 g/dL (6.4-8.2)
[2021-01-27] MEDS ORDERED: ONDANSETRON HCL/PF 4 MG/2 ML VIAL IV ONE (12:30)
[2021-01-27 13:27] LABS: BILIRUBIN,URINE MODERATE (NEGATIVE); COLOR,URINE ORANGE (YELLOW); LEUKOCYTE ESTERASE ,URINE NEGATIVE (NEGATIVE); NITRITE, URINE POSITIVE (NEGATIVE); PH,URINE 6.5 (5.0-8.0); PROTEIN,URINE 100 mg/dl (NEGATIVE); UGLUCOSE NEGATIVE (NEGATIVE)
--- NOTE | 2021-01-27 13:37 | NUR ---
[facility] CALLED DIRECTOR OF SEARCH ENGINE MARKETING PAGED.
[2021-01-27 13:41] LABS: BACTERIA,URINE Moderate /HPF (None Seen); SQUAMOUS EPITHELIAL CELL,UR Few /HPF (None Seen); WBC,URINE 0-2 /HPF (0-3)
--- NOTE | 2021-01-27 14:12 | NUR ---
Assigned room 106
--- NOTE | 2021-01-27 14:17 | NUR ---
covid swab viky and sent to lab
[2021-01-27] MEDS ORDERED: MAG HYDROX/AL HYDROX/SIMETH 30 ML UDC PO PRN (14:30)
[2021-01-27] MEDS ORDERED: Z GUARD REMEDY 2 OZ OINT TP PRN (14:30)
[2021-01-27] MEDS ORDERED: MAGNESIUM HYDROXIDE 30 ML UDC PO PRN (14:30)
--- NOTE | 2021-01-27 15:16 | NUR ---
LAB CALLED PT COVID RESULT NEGATIVE (-)
--- NOTE | 2021-01-27 15:31 | NUR ---
alled to give report. nurse will call back.
--- NOTE | 2021-01-27 15:34 | NUR ---
REPORT GIVEN TO KALE BRO FOR VERENA
--- NOTE | 2021-01-27 15:42 | NUR ---
pt transported to unit on [facility]line with emt and rn at bedside w/ acls protocol. nad noted during transport. pt ambulated from gurney to bed w/o assist on steady gait.
[2021-01-27 15:52] VITALS: BP 110/60
--- NOTE | 2021-01-27 15:57 | NUR ---
RECEIVED PATIENT FROM ER VIA ANGEL,POSITVE TREMORS,AWAKE ALERT DENEIS ANY SOB.CALL LIGHT AT REACH,VSS.WILL CONTINUE TO MONITOR.
[2021-01-27 16:00] VITALS: BP 119/73
[2021-01-27] MEDS: CHLORDIAZEPOXIDE HCL 25 MG CAPSULE PO SCH (16:09)
[2021-01-27] MEDS: IV D5/0.45 NACL 1,000 ML IV PRN (16:21)
[2021-01-27] MEDS: ONDANSETRON HCL/PF 4 MG/2 ML VIAL IVP PRN (16:31)
[2021-01-27] MEDS: CEFTRIAXONE 1 G in IV D5W 50 ML IV SCH (16:35)
--- NOTE | 2021-01-27 16:35 | NUR ---
Refused Marcelo cath
--- NOTE | 2021-01-27 16:50 | NUR ---
provided patient with medications, iv line intact, oriented to the room, call light in reach, bed in lowest position, will; cont to monitor
[2021-01-27] MEDS ORDERED: Thiamine 100 MG in IV D5W 50 ML IV SCH (17:00)
[2021-01-27] MEDS ORDERED: CEPHALEXIN MONOHYDRATE 500 MG CAPSULE PO SCH (17:00)
--- NOTE | 2021-01-27 18:32 | NUR ---
RN CLOSING NOTES REMAINS IN BED, STABLE, NO ACUTE CHANGES IN STATUS, WILL ENDORSE TO PM SHIFT RN FOR VERENA
--- NOTE | 2021-01-27 18:39 | NUR ---
SHAKING, EXPERIENCING TREMORS, SAYING SHE IS VERY ANXIOUS , WILL ADMINISTER PRN ATIVAN
[2021-01-27] MEDS: LORAZEPAM INJ 2 MG/ML VIAL IV PRN (18:40)
[2021-01-27 20:00] VITALS: BP 110/65
[2021-01-28] VITALS: BP 122/80
[2021-01-28] MEDS: LORAZEPAM INJ 2 MG/ML VIAL IV PRN ×4 (01:00→22:29)
[2021-01-28] MEDS: IV D5/0.45 NACL 1,000 ML IV PRN ×2 (03:42→15:56)
[2021-01-28 04:00] VITALS: BP 115/80
[2021-01-28 06:22] LABS: BASOPHILS % (AUTO) 0.5 % (0.0-2.0); EOSINOPHILS % (AUTO) 4.9 % (0.0-6.0); HEMATOCRIT 35 % (33-45); HEMOGLOBIN 11.8 g/dL (11.5-14.8); LYMPHOCYTES # (AUTO) 1.3 /CMM (0.8-4.8); LYMPHOCYTES % (AUTO) 35.8 % (20.0-44.0); MEAN CORPUSCULAR HGB CONC 34 g/dl (31.0-36.0); MEAN CORPUSCULAR VOLUME 96 fL (82-100); MONOCYTES # (AUTO) 0.3 /CMM (0.1-1.30); MONOCYTES % (AUTO) 9.2 % (2.0-12.0); NEUTROPHILS # (AUTO) 1.8 /CMM (1.8-8.9); NEUTROPHILS % (AUTO) 49.6 % (43.0-81.0); PLATELET COUNT (AUTO) 87 /CMM (150-450); RED BLOOD CELL COUNT(AUTO) 3.61 MIL/uL (4.0-5.2); WHITE BLOOD COUNT (AUTO) 3.7 K/uL (4.3-11.0)
--- NOTE | 2021-01-28 06:45 | NUR ---
RN NOTES, PATIENT IN BED SLEEPING AT THIS TIME, NO VOMITING/NAUSEA EXPERIENCED DURING THE NIGHT, WITH TREMORS AND ANXIOUS ONCE DURING SHIFT, ATIVAN ADMINISTERED ORDERED, WILL ENDORSE CONTINUITY IF CARE TO ONCOMING NURSE.
[2021-01-28 06:50] LABS: CALCIUM, SERUM 7.6 mg/dL (8.5-10.1); CREATININE 0.6 mg/dL (0.6-1.3); PHOSPHORUS 3.2 mg/dL (2.5-4.9); POTASSIUM 3.1 mmol/L (3.5-5.1)
[2021-01-28 06:54] LABS: MAGNESIUM 1.2 mg/dL (1.8-2.4)
--- NOTE | 2021-01-28 07:06 | NUR ---
RN NOTES, RECEIVED RESULTS FROM CHARGE NURSE (MILO) INFORMED FROM LAB FOR CA 7.6 AND MAGNESIUM 1.2 ENDORSED TO LAURIE HENLEY AT THIS TIME.
--- NOTE | 2021-01-28 07:15 | NUR ---
RN OPENING NOTES RECEIVED PT IN BED, A/O X4. ON ROOM AIR SATURATING @98%. NO SOB OR ANY RESPIRATORY DISTRESS NOTED AT THIS TIME. NO PAIN REPORTED. NPO EXCEPT MEDS. R HAND #20 INTACT AND PATENT. D5 1/2 NS @100ML/HR INFUSING WELL. SAFETY MEASURES IN PLACE. CALL LIGHT WITHIN REACH. BED LOCKED AND AT LOWEST POSITION WITH SIDE RAILS UP X2. WILL CONTINUE TO MONITOR.
[2021-01-28 07:32] LABS: THYROID STIMULATING HORMONE 2.407 uIU/mL (0.358-3.74)
[2021-01-28 08:00] VITALS: BP 110/75
[2021-01-28] MEDS: PANTOPRAZOLE 40 MG VIAL IV SCH (08:32)
[2021-01-28] MEDS: FOLIC ACID 1 MG TABLET PO SCH (08:33)
[2021-01-28] MEDS: ESCITALOPRAM OXALATE (10 MG) 10 MG TABLET PO SCH (08:33)
[2021-01-28] MEDS: CHLORDIAZEPOXIDE HCL 25 MG CAPSULE PO SCH ×2 (08:33→16:12)
[2021-01-28] MEDS: MAGNESIUM OXIDE 400 MG TABLET PO SCH ×2 (08:57→22:29)
[2021-01-28] MEDS ORDERED: POTASSIUM CHLORIDE 20 MEQ TAB.PRT.SR PO ONE (09:00)
[2021-01-28 10:30] LABS: BAND % (MANUAL) 1 % (0.0-5.0); EOSINOPHILS % (MANUAL) 4 % (0-4); LYMPHOCYTES % (MANUAL) 39 % (16-48); MONOCYTES % (MANUAL) 8 % (0-11.0); NEUTROPHILS % (MANUAL) 48 (42-76)
[2021-01-28 12:00] VITALS: BP 110/65
[2021-01-28] MEDS: CEFTRIAXONE 1 G in IV D5W 50 ML IV SCH (16:11)
[2021-01-28] MEDS: ONDANSETRON HCL/PF 4 MG/2 ML VIAL IVP PRN (16:12)
[2021-01-28] MEDS: THIAMINE HCL 100 MG TABLET PO SCH (16:12)
--- NOTE | 2021-01-28 18:42 | NUR ---
RN CLOSING NOTES NO SIGNIFICANT CHANGES THROUGHOUT THE SHIFT. NO PAIN REPORTED AT THIS TIME. ALL DUE MEDS GIVEN. NEEDS ATTENDED. KEPT COMFORTABLE. SAFETY MEASURES STILL IN PLACE. WILL ENDORSE TO NIGHT RN FOR VERENA.
--- NOTE | 2021-01-28 19:30 | NUR ---
rn opening notes received pt in bed, awake resting. a/o x4. pt is on room air, tolerating well, no sob or resp distress noted. pt saturation 99%. pt on med surg monitoring, pt at this time is anxious, tolerating for now after receiving prn ativan previously. pt verbalizes she will request when another is needed. verbalizes slight pain 3/10 in abdomen does not request pain med at this time, verbalizes she would just like to rest. at this time needs attended. safety measures in place. hob elevated as tolerated. side rails up x2, bed locked in lowest position. call light within reach. will cont to closely monitor. Addendum: 01/28/21 at 2103 by JOSE MCALLISTER RN EDI midline in place, IVF d51/2 ns running as ordered. no s/s of infiltration at this time, will cont to monitor pt throughout shift.
[2021-01-28 20:00] VITALS: BP 134/88
[2021-01-29] MEDS: IV D5/0.45 NACL 1,000 ML IV PRN ×2 (01:10→16:07)
[2021-01-29 04:00] VITALS: BP 119/80
[2021-01-29] MEDS: CHLORDIAZEPOXIDE HCL 10 MG CAPSULE PO SCH ×3 (04:12→16:08)
[2021-01-29] MEDS: LORAZEPAM INJ 2 MG/ML VIAL IV PRN ×3 (05:31→18:38)
[2021-01-29 05:58] LABS: BASOPHILS % (AUTO) 0.8 % (0.0-2.0); EOSINOPHILS % (AUTO) 4.4 % (0.0-6.0); HEMATOCRIT 32 % (33-45); HEMOGLOBIN 10.9 g/dL (11.5-14.8); LYMPHOCYTES # (AUTO) 1.3 /CMM (0.8-4.8); MEAN CORPUSCULAR HGB CONC 34 g/dl (31.0-36.0); MEAN CORPUSCULAR VOLUME 97 fL (82-100); MONOCYTES # (AUTO) 0.3 /CMM (0.1-1.30); NEUTROPHILS # (AUTO) 1.6 /CMM (1.8-8.9); NEUTROPHILS % (AUTO) 47.8 % (43.0-81.0); PLATELET COUNT (AUTO) 86 /CMM (150-450); RED BLOOD CELL COUNT(AUTO) 3.32 MIL/uL (4.0-5.2); WHITE BLOOD COUNT (AUTO) 3.4 K/uL (4.3-11.0)
--- NOTE | 2021-01-29 06:32 | NUR ---
Rn closing notes Pt remains in bed, no significant changes. pt remains on room air, still tolerating well, no sob or resp distress. Pt verbalizes having more strength and energy as the shift went on. pt had occasional tremors and significant anxiety and requested Ativan prn. All due medications given, all needs attended. Pt remains afebrile. Motivated to self care, hygiene products provided. Pt denies pain at this time. Safety measures in place. Seizure precautions in place. Hob elevated as tolerated. Side rails up x2, bed locked in lowest position, call light within reach. Will endorse to oncoming nurse for continuation of care.
[2021-01-29 06:36] LABS: CALCIUM, SERUM 7.7 mg/dL (8.5-10.1); CREATININE 0.6 mg/dL (0.6-1.3); MAGNESIUM 1.7 mg/dL (1.8-2.4); PHOSPHORUS 2.8 mg/dL (2.5-4.9); POTASSIUM 3.3 mmol/L (3.5-5.1)
--- NOTE | 2021-01-29 07:10 | NUR ---
RN OPENING NOTE PT RECEIVED IN BED RESTING IN SEMI-FOWLERS POSITION. PT ON ROOM AIR TOLERATING WELL WITH NO COMPLAINTS OF SOB OR RESPIRATORY DISTRESS. LEFT UPPER ARM MIDLINE INTACT AND RUNNING D5 1/2 NS AT 100 ML/HR. SAFETY PRECAUTIONS IMPLEMENTED, BED LOCKED IN LOWEST POSITION, SIDE RAILS UP X2, CALL LIGHT WITHIN REACH. WILL CONTINUE TO MONITOR AND PROVIDE CARE THROUGHOUT SHIFT.
[2021-01-29 09:34] LABS: EOSINOPHILS % (MANUAL) 3 % (0-4); LYMPHOCYTES % (MANUAL) 37 % (16-48); MONOCYTES % (MANUAL) 7 % (0-11.0); NEUTROPHILS % (MANUAL) 53 (42-76)
[2021-01-29] MEDS: FOLIC ACID 1 MG TABLET PO SCH (09:56)
[2021-01-29] MEDS: PANTOPRAZOLE 40 MG VIAL IV SCH (09:57)
[2021-01-29] MEDS: ESCITALOPRAM OXALATE (10 MG) 10 MG TABLET PO SCH (09:57)
[2021-01-29] MEDS ORDERED: MAGN400T26 PO (11:12)
[2021-01-29] MEDS ORDERED: Thiamine HCL PO (11:12)
[2021-01-29] MEDS ORDERED: CHLO10CA6 PO (11:12)
[2021-01-29] MEDS ORDERED: Folic Acid PO (11:12)
[2021-01-29] MEDS ORDERED: CEPH500C2 PO (11:14)
[2021-01-29] MEDS ORDERED: POTASSIUM CHLORIDE 20 MEQ TAB.PRT.SR PO SCH (11:30)
[2021-01-29] MEDS: Magnesium 1GM/D5W 100ML PREMIX 100 ML IV SCH ×2 (11:55→12:00)
[2021-01-29 12:00] VITALS: BP 123/82
[2021-01-29] MEDS: ONDANSETRON HCL/PF 4 MG/2 ML VIAL IVP PRN (13:03)
--- NOTE | 2021-01-29 15:39 | NUR ---
SS Consult : SS Consult requested for Alcohol withdrawal. The pt. is a 30-year old female. SW met with pt. bedside. The pt. is alert & oriented x 4 and makes appropriate eye contact. The pt. appears unkempt, is pleasant and cooperative throughout interview. Patients mood is depressed and became tearful throughout interview. Patient stated that she has been consuming alcohol since the age of 15 but she became a heavy drinker about 5 years ago as she was hanging out with friends who were heavy drinkers. Patient stated she drank 1 bottle of Vodka/day for 10-11 days straight this last binge. SW conducted alcohol intervention with pt. Pt. stated that the addiction to alcohol has affected her relationships and employment in the past. Per pt. she has been trying to give up alcohol alone. SW used active listening, validated her feelings and encouraged her to consider rehab. Patient is agreeable for SW to refer her to [facility] outpatient rehab. SW will follow up accordingly. Patient stated her support system includes her roommate, Onofre Flowers [phone] and her boyfriend, Boubacar Lockett [phone]. Pt. stated that she has family but she has distanced herself as to hide how big of a problem alcohol is for her. Patient stated that she is getting unemployment due to COVID-19. SW explored pt.s mental health Hx. Patient stated she has been diagnosed with anxiety & Depression in the past. Patient stated she is currently on Lexapro and Hydroxyzine. Pt. denies SI/HI and denies hallucinations. Pt. with fair insight & poor judgement. Plan: KELSI faxed clinicals to [facility] FAX : [phone]. KELSI also provided pt. with the following addiction resources and pt. accepted them. SW will follow up as needed. ADDICTION RESOURCES For Drugs and Alcohol [facility] Substance Abuse Helpline([facility] Outpatient treatment, residential treatment, recovery support for youth and adults [facility] www.actionfamilycounseling.BiteHunter [facility] Teen programs for drug/alcohol education and support Mer[facility] Reddy [place]. Program for adults, sliding scale provides support and education [facility] www.EngageKentaura.org [place]; Outpatient/residential treatment programs; transition to sober living [facility] www.cri-help.org [place]; Outpatient and residential treatment programs; transition to sober living [facility] [place]; Outpatient education and supportive programs for teens and adults [facility] www.[facility].org [place]; Residential treatment and work program for females only [facility] www.Yelllohargyle.Conversocial [place]: Outpatient/residential treatment program for teens and young adults [facility] www.legacy health.org [place] [facility], inpatient, outpatient for adults and youth [facility], [facility]. [facility]; Outpatient programs and referrals to community residential programs. Alcoholics Anonymous -SFV information and meeting and schedules www.aa-intergroup.org [facility]s-[facility] https://al-anon.org/ [place] support groups for family of alcoholics. Marijuana Anonymous www.madistrict6.org -SFV listing of meetings Narcotics Anonymous www.na.org SOBER LIVING RESOURCES [facility] www.soberhousing.net A non-profit agency that provides resources to recovery and sober living homes throughout [place], [place], [facility] Sober Living Homes: [facility] Work in Progress, [facility] [employer] [place] [facility], [place] [facility]: [facility] [phone] [facility], [facility]: [facility]
[2021-01-29] MEDS: THIAMINE HCL 100 MG TABLET PO SCH (16:07)
[2021-01-29] MEDS: CEFTRIAXONE 1 G in IV D5W 50 ML IV SCH (16:07)
--- NOTE | 2021-01-29 19:03 | NUR ---
RN CLOSING NOTE PT RECEIVED IN BED RESTING IN SEMI-FOWLERS POSITION. PT ON ROOM AIR TOLERATING WELL WITH NO COMPLAINTS OF SOB OR RESPIRATORY DISTRESS. LEFT UPPER ARM MIDLINE INTACT AND RUNNING D5 1/2 NS AT 100 ML/HR. SAFETY PRECAUTIONS IMPLEMENTED, BED LOCKED IN LOWEST POSITION, SIDE RAILS UP X2, CALL LIGHT WITHIN REACH. PATIENT HAD 2 EPISODES OF EMESIS. MAD AWARE AND PRN ZOFRAN ADMINISTERED. PRN ATIVAN GIVEN FOR ANXIETY. WILL ENDORSE CARE TO UPCOMING SHIFT.
--- NOTE | 2021-01-29 19:30 | NUR ---
RN OPENING NOTES: RECEIVED PT A/OX4 IN BED RESTING COMFORTABLY. PATIENT IN NO S/SX OF ACUTE DISTRESS AT THIS TIME. NO SOB NOTED. PATIENT'S BREATHING IS EVEN AND UNLABORED. PATIENT IS ON ROOM AIR; TOLERATING WELL. PATIENT ON CLEAR LIQUID DIET; TOLERATES WELL. NOTED IV SITE ON L UA MIDLINE #18; PATENT, INTACT AND FLUSHING WELL; NO S/S OF INFECTION OR INFILTRATION. WITH IV FLUID RUNNING ORDERED. SAFETY MEASURES HAVE BEEN PROVIDED AND IMPLEMENTED. PATIENT BED ALARM IS ON. HEAD OF BED ELEVATED. BED IS LOCKED, IN LOWEST POSITION AND SIDE RAILS UP. CALL LIGHT WITHIN REACH OF THE PATIENT. APPLICABLE ISOLATION PRECAUTIONS IN PLACE. WILL CONTINUE TO MONITOR AND REASSESS FOR ANY CHANGES AND WILL CARRY OUT ANY ONGOING AND ACTIVE MD ORDER.
[2021-01-29 20:00] VITALS: BP_SYST 121; BP_SYST 99; BP_DIAS 60; BP_DIAS 79
[2021-01-29] MEDS ORDERED: LIDOCAINE 1%-EPI 1:100,000 20 ML VIAL ONE (21:06)
[2021-01-29] MEDS: MAGNESIUM OXIDE 400 MG TABLET PO SCH (21:34)
[2021-01-29] MEDS: ACETAMINOPHEN 325 MG TABLET PO PRN (22:23)
--- NOTE | 2021-01-29 23:00 | NUR ---
RN NOTES NO CHANGE IN PATIENT CONDITION AT THIS TIME PATIENT VITALS STABLE, NO SIGNS OF ACUTE RESPIRATORY DISTRESS. AUDIO VISUAL TECHNICIAN MADE AWARE. WILL CONTINUE TO MONITOR AND REASSESS FOR ANY CHANGES THROUGHOUT THE SHIFT.
--- NOTE | 2021-01-30 03:00 | NUR ---
RN NOTES PATIENT REMAINS IN NO ACUTE RESPIRATORY DISTRESS AT THIS TIME, NO CHANGES TO CONDITION/STATUS. TECHNICAL DESIGNER WELL AWARE. WILL CONTINUE TO MONITOR AND REASSESS FOR ANY CHANGES THROUGHOUT THE SHIFT
[2021-01-30 04:00] VITALS: BP 103/68
[2021-01-30] MEDS: IV D5/0.45 NACL 1,000 ML IV PRN (05:01)
[2021-01-30] MEDS: ACETAMINOPHEN 325 MG TABLET PO PRN (05:27)
[2021-01-30 05:52] LABS: BASOPHILS % (AUTO) 0.9 % (0.0-2.0); HEMATOCRIT 34 % (33-45); HEMOGLOBIN 11.3 g/dL (11.5-14.8); LYMPHOCYTES # (AUTO) 1.5 /CMM (0.8-4.8); LYMPHOCYTES % (AUTO) 36.5 % (20.0-44.0); MEAN CORPUSCULAR HGB CONC 33 g/dl (31.0-36.0); MEAN CORPUSCULAR VOLUME 98 fL (82-100); MONOCYTES # (AUTO) 0.4 /CMM (0.1-1.30); MONOCYTES % (AUTO) 10.3 % (2.0-12.0); NEUTROPHILS % (AUTO) 48.3 % (43.0-81.0); PLATELET COUNT (AUTO) 105 /CMM (150-450); RED BLOOD CELL COUNT(AUTO) 3.47 MIL/uL (4.0-5.2); WHITE BLOOD COUNT (AUTO) 4.1 K/uL (4.3-11.0)
[2021-01-30 06:17] LABS: CREATININE 0.6 mg/dL (0.6-1.3); MAGNESIUM 2.4 mg/dL (1.8-2.4); PHOSPHORUS 2.8 mg/dL (2.5-4.9); POTASSIUM 3.6 mmol/L (3.5-5.1)
--- NOTE | 2021-01-30 06:49 | NUR ---
RN CLOSING NOTE: PATIENT REMAINS IN ROOM RESTING COMFORTABLY.NO SIGNS OF RESPIRATORY DISTRESS PATIENT STILL ON ROOM AIR ;TOLERATING WELL SATURATING @ >95% SP02.PATIENT IS CLEAN , DRY AND COMFORTABLE THROUGHOUT THE SHIFT. ALL DUE MEDS GIVEN ORDERED ; PATIENT TOLERATED WELL. SAFETY MEASURES IMPLEMENTED, BED IN LOWEST POSITION, LOCKED, SIDE RAILS UP, CALL LIGHT WITHIN REACH. PATIENT ENDORSED TO INCOMING SHIFT RN WITH STABLE VITAL SIGN AND FOR CONTINUITY OF CARE.
--- NOTE | 2021-01-30 07:34 | NUR ---
RN OPENING NOTES: RECEIVED PATIENT IN BED, SLEEPING. PATIENT PAIN OR RESPIRATORY DISTRESS NOTED. NO SOB NOTED. PATIENT'S BREATHING IS EVEN AND UNLABORED. ON ROOM AIR - TOLERATING WELL. IV SITE ON L UA MIDLINE #18 - PATENT, INTACT AND FLUSHING WELL - RUNNING D5 1/2 NS @ 100ML/HR. SAFETY MEASURES IMPLEMENTED. BED ALARM ON, SEMI-FOWLERS, BED IS LOCKED AND IN LOWEST POSITION, SIDE RAILS X2. CALL LIGHT WITHIN REACH. WILL CONTINUE TO MONITOR.
[2021-01-30 08:00] VITALS: BP 118/73
[2021-01-30] MEDS: FOLIC ACID 1 MG TABLET PO SCH (08:12)
[2021-01-30] MEDS: PANTOPRAZOLE 40 MG VIAL IV SCH (08:12)
[2021-01-30] MEDS: ESCITALOPRAM OXALATE (10 MG) 10 MG TABLET PO SCH (08:12)
[2021-01-30] MEDS: CHLORDIAZEPOXIDE HCL 10 MG CAPSULE PO SCH (08:12)
[2021-01-30 12:00] VITALS: BP 124/92
--- NOTE | 2021-01-30 13:20 | NUR ---
MS TRAUMA MANAGER NOTE PATIENT MEDICALLY STABLE AT THIS TIME. PATIENT DISCHARGED VIA BUS WITH TAP CARD. A/O X4. NO PAIN NOTED. NO N/V NOTED. NO SOB OR RESPIRATORY DISTRESS PRESENT. BREATHING EVEN AND NON-LABORED. ABLE TO EAT FOOD WITHOUT VOMITING. EXITCARE INSTRUCTIONS AND EDUCATION PROVIDED AND REVIEWED WITH PATIENT. PATIENT VERBALIZED UNDERSTANDING. PATIENT RECEIVED PHYSICAL PRESCRIPTIONS. IV MIDLINE REMOVED. WRISTBAND REMOVED. PATIENT TAKEN TO LOBBY VIA WHEELCHAIR BY CALEB.
[2021-01-31] MEDS ORDERED: PANTOPRAZOLE 40 MG TABLET.DR PO SCH (07:30)
== END 2021-01-30 13:21 | disposition home or self-care (01) | DRG 774 ==
LOC: ER 10:59 → TELE1 14:22 → MEDSG1 01-28 08:03
PROVIDERS: ADMIT Registered Nurse; ATTEND Registered Nurse
PROC: 05HC33Z Insertion of Infusion Device into Left Basilic Vein, Percutaneous Approach (ICD-10-PCS; principal; 2021-01-28)
DX: F10.139 Alcohol abuse with withdrawal, unspecified (principal); Y90.5 Blood alcohol level of 100-119 mg/100 ml; N39.0 Urinary tract infection, site not specified; E78.5 Hyperlipidemia, unspecified; D69.6 Thrombocytopenia, unspecified; F32.9 Major depressive disorder, single episode, unspecified; F41.9 Anxiety disorder, unspecified; I10 Essential (primary) hypertension; Z79.899 Other long term (current) drug therapy; F14.90 Cocaine use, unspecified, uncomplicated; F17.210 Nicotine dependence, cigarettes, uncomplicated; R74.01 Elevation of levels of liver transaminase levels; B96.89 Other specified bacterial agents as the cause of diseases classified elsewhere; E87.6 Hypokalemia; Z81.1 Family history of alcohol abuse and dependence; D64.9 Anemia, unspecified; E83.42 Hypomagnesemia
CPT/HCPCS: 36415; 80048-TC; 80061-TC; 80076-TC; 81001; 83735-TC; 84100-TC; 84443-TC; 84703-TC; 85025-TC; 87081-TC; 87086-TC; C9113; G0378; G0480; J0696; J2060; J2405; J3411; J3475; J3490; J7030; J7042; J7060

== ENCOUNTER 2021-04-03 14:06 | Emergency (ER) | payer MEDICAID ==
[~2021-04-03] VITALS: Ht 167.6 cm; Wt 72.6 kg
[~2021-04-03 14:06] MED LIST changes: +CEPH500C2 PO; +CHLO10CA6 PO; +Folic Acid PO; +MAGN400T26 PO; +Thiamine HCL PO
--- NOTE | 2021-04-03 14:20 | NUR ---
The patient bibs for "trying to taper off alcohol abuse usually drink 1l Vodka daily last drank 7am. I feel my whole body hurts. +Abdominal Pain/n/v" crying/upset. The patient is alert and oriented x4. In room air and denies SOB. Respiration regular and unlabored. Attached to the monitor. Warm blanket provided for comfort. Will continue to monitor the patient.
[2021-04-03] MEDS: Thiamine 100 MG in IV D5W 50 ML IV SCH (15:00)
[2021-04-03] MEDS ORDERED: CHLORDIAZEPOXIDE HCL 25 MG CAPSULE ONE (15:04)
[2021-04-03] MEDS ORDERED: LORAZEPAM INJ 2 MG/ML VIAL ONE (15:04)
[2021-04-03 15:10] LABS: BASOPHILS # (AUTO) 0.1 /CMM (0.0-0.2); BASOPHILS % (AUTO) 0.6 % (0.0-2.0); EOSINOPHILS % (AUTO) 0.1 % (0.0-6.0); HEMATOCRIT 40 % (33-45); HEMOGLOBIN 13.7 g/dL (11.5-14.8); LYMPHOCYTES # (AUTO) 1.7 /CMM (0.8-4.8); MEAN CORPUSCULAR HGB CONC 34 g/dl (31.0-36.0); MEAN CORPUSCULAR VOLUME 96 fL (82-100); MONOCYTES # (AUTO) 0.9 /CMM (0.1-1.30); MONOCYTES % (AUTO) 8.3 % (2.0-12.0); PLATELET COUNT (AUTO) 380 /CMM (150-450); RED BLOOD CELL COUNT(AUTO) 4.19 MIL/uL (4.0-5.2); WHITE BLOOD COUNT (AUTO) 10.7 K/uL (4.3-11.0)
[2021-04-03 15:12] LABS: CALCIUM, SERUM 8.3 mg/dL (8.5-10.1); CARBON DIOXIDE 31 mmol/L (21-32); CHLORIDE 99 mmol/L (98-107); CREATININE 0.6 mg/dL (0.6-1.3); GLUCOSE 89 mg/dL (74-106); POTASSIUM 3.3 mmol/L (3.5-5.1); SODIUM SERUM 142 mmol/L (136-145); UREA NITROGEN, BLOOD 9 mg/dL (7-18)
[2021-04-03] MEDS: IV NS 0.9% 1,000 ML BAG IV ONE (15:12)
[2021-04-03] MEDS: CHLORDIAZEPOXIDE HCL 25 MG CAPSULE PO ONE (15:13)
[2021-04-03] MEDS: LORAZEPAM INJ 2 MG/ML VIAL IVP ONE (15:13)
[2021-04-03 15:17] LABS: BILIRUBIN,URINE Negative (NEGATIVE); COLOR,URINE YELLOW (YELLOW); LEUKOCYTE ESTERASE ,URINE Negative (NEGATIVE); NITRITE, URINE Negative (NEGATIVE); PROTEIN,URINE 100 mg/dl (NEGATIVE); UGLUCOSE Negative (NEGATIVE); UROBILINOGEN,URINE 0.2 EU/dL (0.2)
[2021-04-03 15:18] LABS: PH,URINE >9.0 (5.0-8.0)
[2021-04-03 15:25] LABS: ALANINE AMINOTRANSFERASE 23 U/L (12-78); ALBUMIN 3.7 g/dL (3.4-5.0); ALCOHOL, BLOOD 157 mg/dL (0-0); ALKALINE PHOSPHATASE 76 U/L (46-116); ASPARTATE AMINOTRANSFERASE 26 U/L (15-37); BILIRUBIN,DIRECT 0.1 mg/dL (0.0-0.2); BILIRUBIN,TOTAL 0.3 mg/dL (0.2-1.0); TOTAL PROTEIN, SERUM 7.7 g/dL (6.4-8.2)
--- NOTE | 2021-04-03 15:30 | NUR ---
Linux Engineer consult: food services coordinator consult requested for ETOH withdrawal. Patient is a 30-year-old, female. SW met with patient at her bedside in the emergency department. Patient was alert and oriented x4. Patient presented to be experiencing pain and discomfort. Per chart, patient was brought in by self on 04/03/21 for ETOH withdrawal. SW assessed patients history of substance use and patient stated that she has been drinking one bottle of vodka a day for months. Patient stated that she stopped drinking a few days ago and started to experience withdrawal symptoms early this morning. Patient reported that she occasionally uses marijuana. Patient stated that she currently lives with roommates at [address] [place] [id number]; [phone]. Patient stated that she is currently unemployed and receives KHUSHI. Patient stated that she is in contact with her family as a source of support. SW assessed patients history of mental illness and patient stated that she has a history of Anxiety and Depression and takes Lexapro and another psychiatric medication that the patient was unable to recall. Patient stated that she obtains her medication from local [facility] pharmacies. Patient denied current suicidal or homicidal ideation. SW offered patient substance use and outpatient counseling resources. Patient accepted the resources and thanked SW, stating that she is motivated to follow up as she is aware that she requires treatment. SW discussed discharge plans with the patient and patient stated that she will be returning to her prior living arrangement. Patient stated that her roommates will be able to pick her up from the hospital. PLAN: Patient plans to return to her prior living arrangement at the time of discharge. No further SS intervention at this time, however, SW will remain available as needed. Substance use resources provided included: [facility] Substance Abuse Self-Helpline (SAS) ; [facility] [address] [facility]. [facility] [address] ; [facility] [address] [facility] [address] ; [facility] [address] [facility] [address] ; [facility] [address] [facility] [address] ; [facility] [address] [facility]. [facility] [id number] ; [facility] [place]; [facility] [place]; [facility]; Alcoholics [facility]patient [facility] [address] [facility] [place] [address] [place] [address] (Specializes in in-depth psychotherapy for emotional distress: anxiety, depression, interpersonal conflicts, life transitions, childhood abuse) PSYCHIATRIC OUTPATIENT SERVICES [facility] Partial Hospitalization and Intensive Outpatient Program (Managed Care and [place] Only) [address] [facility] [id number] [facility] Partial Hospitalization and Outpatient Program [address] [place], [place] [id number] [facility] Partial Hospitalization and Outpatient Program [address] [facility]. [place], [place] [id number] [address] [facility] [address] [address] [place], [place] [id number] [facility] Partial Hospitalization and Outpatient Program [address], [place] [phone]
[2021-04-03] MEDS: Folic acid 1 MG in IV D5W 50 ML IV SCH (15:33)
[2021-04-03 15:41] LABS: BACTERIA,URINE Moderate /HPF (None Seen); RBC,URINE 0-2 /HPF (0-2); SQUAMOUS EPITHELIAL CELL,UR Moderate /HPF (None Seen); WBC,URINE 0-2 /HPF (0-3)
[2021-04-03 15:42] LABS: ACETAMINOPHEN < 0 ug/ml (10-30)
[2021-04-03] MEDS: MAG HYDROX/AL HYDROX/SIMETH 30 ML UDC PO ONE (16:20)
[2021-04-03] MEDS: FAMOTIDINE/PF INJ 20 MG/2 ML VIAL IV ONE (16:20)
[2021-04-03] MEDS ORDERED: MAG HYDROX/AL HYDROX/SIMETH 30 ML UDC ONE (16:21)
[2021-04-03] MEDS ORDERED: FAMOTIDINE/PF INJ 20 MG/2 ML VIAL IV ONE (16:21)
[2021-04-03] MEDS ORDERED: CHLO25CA22 PO (19:41)
[2021-04-03] MEDS ORDERED: LORAZEPAM 1 MG TABLET ONE (19:51)
[2021-04-03] MEDS: LORAZEPAM 1 MG TABLET PO ONE (19:53)
--- NOTE | 2021-04-03 19:53 | NUR ---
Patient discharged to home in stable condition. Written and verbal after care instructions given. Patient verbalizes understanding of instruction. Pt ambulated out of ED. VSS.
--- NOTE | 2021-04-03 19:53 | NUR ---
IV removed. Catheter intact and site benign. Pressure and 4x4 applied to site. No bleeding noted.
[2021-04-03 19:54] VITALS: BP 119/75
== END 2021-04-03 20:02 | disposition home or self-care (01) ==
LOC: ER 14:11
DX: F10.239 Alcohol dependence with withdrawal, unspecified (principal); F41.9 Anxiety disorder, unspecified; F17.200 Nicotine dependence, unspecified, uncomplicated; Z79.899 Other long term (current) drug therapy; Y90.6 Blood alcohol level of 120-199 mg/100 ml
CPT/HCPCS: 36415; 80048; 80076; 80143; 80307; 80320; 81001; 85025; 87086; 93005; 96365; 96366; 96368; 96375; 99284; J2060; J3411; J3490 ×2; J7030; J7060 ×2; G0480

== ENCOUNTER 2021-04-22 09:59 | Emergency (ER) | payer MEDICAID, OTHER ==
[~2021-04-22] VITALS: Ht 167.6 cm; Wt 71.7 kg
[~2021-04-22 09:59] MED LIST changes: +CHLO25CA22 PO
--- NOTE | 2021-04-22 10:03 | NUR ---
shaking/tremors,c/o withdrawing from alcohol,last drink last night. PT AAOX4, RR EVEN & UNLABORED. PT ALSO C/O GENERALIZED BODY ACHES. PLACED ON CUSTOMER INSIGHT ANALYST, ST. AWAITING EVAL BY CARIN. WILL CONT TO MONITOR.
[2021-04-22] MEDS ORDERED: ONDANSETRON HCL/PF 4 MG/2 ML VIAL ONE (12:20)
[2021-04-22] MEDS ORDERED: LORAZEPAM INJ 2 MG/ML VIAL ONE ×2 (12:21→17:40)
[2021-04-22] MEDS ORDERED: LORAZEPAM INJ 2 MG/ML VIAL IV ONE ×2 (12:30→17:30)
[2021-04-22] MEDS ORDERED: IV NS 0.9% 500 ML BAG IV ONE (12:30)
[2021-04-22] MEDS ORDERED: ONDANSETRON HCL/PF 4 MG/2 ML VIAL IV ONE (12:30)
--- NOTE | 2021-04-22 15:19 | NUR ---
U[employer] Research Associate consult: visitor services assistant consult requested for ETOH withdrawal. Patient is a 30-year-old, female. SW met with patient at her bedside in the emergency department. Patient was alert and oriented x4. Patient appeared to be experiencing pain and discomfort. Per chart, patient presented to the hospital on 04/22/21 due to ETOH withdrawal. SW assessed patients history of substance use and patient stated that she had been drinking full sized bottles of vodka daily within the last week. Patient stated that she has trouble controlling her alcohol use. Patient reported occasional marijuana use. Patient stated that she currently lives with roommates at [address] [place] [address]; [phone]. Patient stated that she is currently unemployed and receives KHUSHI. Patient stated that she is in contact with her family as a source of support. SW assessed patients history of mental illness and patient stated that she has a history of Anxiety and Depression and reported that she is currently prescribed with Lexapro and another psychiatric medication that the patient was unable to recall. Patient stated that she obtains her medication from local [facility] pharmacies. Patient denied current suicidal or homicidal ideation. SW offered patient substance use and outpatient counseling resources. Patient declined the resources and stated that she has access to adequate resources but needs to motivate herself to seek treatment. Patient stated that she currently has a therapist and psychiatrist. SW discussed discharge plans with the patient and patient stated that she will be returning to her prior living arrangement. Patient stated that she will use a [employer] service for transportation. PLAN: Patient plans to return to her prior living arrangement at the time of discharge. No further SS intervention at this time, however, SW will remain available as needed.
[2021-04-22] MEDS ORDERED: IV NS 0.9% 1,000 ML IV ONE (17:30)
[2021-04-22] MEDS ORDERED: LORA-258 PO (19:29)
[2021-04-22] MEDS ORDERED: CHLO25CA22 PO (19:29)
[2021-04-22 19:54] VITALS: BP 118/74
== END 2021-04-22 19:54 | disposition home or self-care (01) ==
LOC: ER 10:01
DX: F10.20 Alcohol dependence, uncomplicated (principal); F41.9 Anxiety disorder, unspecified; F17.200 Nicotine dependence, unspecified, uncomplicated; Z79.899 Other long term (current) drug therapy; Y90.9 Presence of alcohol in blood, level not specified
CPT/HCPCS: 96361; 96374; 96375; 96376; 99285; J2060 ×2; J2405; J7030 ×2

== ENCOUNTER 2021-06-04 07:31 | Emergency (ER) | payer MEDICAID ==
[~2021-06-04] VITALS: Ht 162.6 cm; Wt 71.2 kg
[~2021-06-04 07:31] MED LIST changes: +LORA-258 PO
--- NOTE | 2021-06-04 07:42 | NUR ---
TO ER BED 1, NAUSEA, VOMITING SHAKES X 2 DAYS AFTER WITHDRAWING FRM ALCOHOL.
[2021-06-04] MEDS ORDERED: CHLORDIAZEPOXIDE HCL 25 MG CAPSULE ONE (07:49)
[2021-06-04] MEDS: CHLORDIAZEPOXIDE HCL 25 MG CAPSULE PO ONE (07:51)
[2021-06-04 08:00] VITALS: BP 124/82
--- NOTE | 2021-06-04 08:18 | NUR ---
PT REQUESTED FOR MD NITIN AWARE
--- NOTE | 2021-06-04 08:36 | NUR ---
Patient eloped from facility. ER MD notified.
== END 2021-06-04 08:40 | disposition left against medical advice (07) ==
LOC: ER 07:33
DX: F10.239 Alcohol dependence with withdrawal, unspecified (principal); F41.9 Anxiety disorder, unspecified; F17.200 Nicotine dependence, unspecified, uncomplicated; Y90.9 Presence of alcohol in blood, level not specified; Z79.899 Other long term (current) drug therapy

== ENCOUNTER → 2022-01-10 | Emergency (ER) | payer MEDICAID ==
[~2022-01-10] VITALS: Ht 160 cm; Wt 63.5 kg
[~2022-01-10] MED LIST changes: +SULF1TAB48 PO; +TDAP [DIPH/PERTUSSIS/TET] 0.5 ML VIAL IM ONE
[2022-01-10 19:00] VITALS: BP 126/79
--- NOTE | 2022-01-10 21:18 | NUR ---
Patient discharged to home in stable condition. Written and verbal after care instructions given. Patient verbalizes understanding of instruction.
== END | disposition home or self-care (01) ==
LOC: ER 18:13
DX: S91.114A Laceration without foreign body of right lesser toe(s) without damage to nail, initial encounter (principal); F41.9 Anxiety disorder, unspecified; F10.10 Alcohol abuse, uncomplicated; Z79.899 Other long term (current) drug therapy; W25.XXXA Contact with sharp glass, initial encounter; Y93.89 Activity, other specified; Y92.89 Other specified places as the place of occurrence of the external cause; Y99.8 Other external cause status; Y90.9 Presence of alcohol in blood, level not specified
CPT/HCPCS: 12001; 90471; 90715; 99283; A6403

== ENCOUNTER 2022-01-12 13:39 | Emergency (ER) | payer MEDICAID ==
[~2022-01-12] VITALS: Ht 162.6 cm; Wt 63.5 kg
[~2022-01-12 13:39] MED LIST changes: -SULF1TAB48 PO; -TDAP [DIPH/PERTUSSIS/TET] 0.5 ML VIAL IM ONE
[2022-01-12 14:09] VITALS: BP 102/67
--- NOTE | 2022-01-12 14:10 | NUR ---
BIBS C/O WOUND CHECK FOLLOW UP ON RT FOOT, WAS HERE LAST TUESDAY. DENIES PAIN. WILL CONTINUE TO MONITOR THE PATIENT.
[2022-01-12] MEDS ORDERED: CEPH500C2 PO (15:01)
[2022-01-12] MEDS ORDERED: SULF1TAB48 PO (15:01)
--- NOTE | 2022-01-12 15:06 | NUR ---
Patient discharged to home in stable condition. Written and verbal after care instructions given. Patient verbalizes understanding of instruction.
== END 2022-01-12 15:07 | disposition home or self-care (01) ==
LOC: ER 13:46
DX: S61.216D Laceration without foreign body of right little finger without damage to nail, subsequent encounter (principal); F41.9 Anxiety disorder, unspecified; Z79.899 Other long term (current) drug therapy; X58.XXXD Exposure to other specified factors, subsequent encounter

== ENCOUNTER 2022-01-18 11:40 | Emergency (ER) | payer MEDICAID ==
[~2022-01-18] VITALS: Ht 160 cm; Wt 63.5 kg
[~2022-01-18 11:40] MED LIST changes: +SULF1TAB48 PO
--- NOTE | 2022-01-18 12:00 | NUR ---
BIBS FOR RIGHT PINKY TOE WOUND CHECK FOR SUTURE REMOVAL. DENIES PAIN. NO S/S INFECTION NOTED. WILL CONTINUE TO MONITOR THE PATIENT.
[2022-01-18 12:25] VITALS: BP 112/81
--- NOTE | 2022-01-18 12:25 | NUR ---
Patient discharged to home in stable condition. Written and verbal after care instructions given. Patient verbalizes understanding of instruction.
== END 2022-01-18 12:26 | disposition home or self-care (01) ==
LOC: ER 11:43
DX: S91.114D Laceration without foreign body of right lesser toe(s) without damage to nail, subsequent encounter (principal); Z48.02 Encounter for removal of sutures; F41.9 Anxiety disorder, unspecified; F10.21 Alcohol dependence, in remission; F17.200 Nicotine dependence, unspecified, uncomplicated; Z79.52 Long term (current) use of systemic steroids; Z79.899 Other long term (current) drug therapy; X58.XXXD Exposure to other specified factors, subsequent encounter; Y90.9 Presence of alcohol in blood, level not specified

== ENCOUNTER 2022-10-01 10:46 | Emergency (ER) | payer MEDICAID ==
[~2022-10-01] VITALS: Ht 160 cm; Wt 77.1 kg
[2022-10-01] MEDS ORDERED: MORPHINE SULFATE INJ 2 MG/ML DISP.SYRIN IM ONE (11:00)
[2022-10-01] MEDS ORDERED: MORPHINE SULFATE INJ 4 MG/ML DISP.SYRIN ONE (11:08)
--- NOTE | 2022-10-01 11:33 | NUR ---
CALLED [facility]. [phone]
[2022-10-01] MEDS ORDERED: HYDROCODONE/APAP 5/325MG TABLET PO ONE (12:00)
--- NOTE | 2022-10-01 12:06 | NUR ---
CALLED [facility] [phone] ZAYAS. LEFT VM
[2022-10-01] MEDS ORDERED: HYDROCODONE/APAP 5/325MG TABLET ONE (12:10)
[2022-10-01] MEDS ORDERED: HYDR-4209 PO (12:49)
[2022-10-01] MEDS ORDERED: KETO10TA2 PO (12:49)
--- NOTE | 2022-10-01 13:11 | NUR ---
Patient discharged to home in stable condition. Written and verbal after care instructions given. Patient verbalizes understanding of instruction.
[2022-10-01 13:12] VITALS: BP 129/70
== END 2022-10-01 13:13 | disposition home or self-care (01) ==
LOC: ER 10:50
DX: S42.351A Displaced comminuted fracture of shaft of humerus, right arm, initial encounter for closed fracture (principal); F41.9 Anxiety disorder, unspecified; F17.200 Nicotine dependence, unspecified, uncomplicated; Z79.899 Other long term (current) drug therapy; W01.0XXA Fall on same level from slipping, tripping and stumbling without subsequent striking against object, initial encounter; Y93.89 Activity, other specified; Y92.89 Other specified places as the place of occurrence of the external cause; Y99.8 Other external cause status
CPT/HCPCS: 99283; 99406; 96372; 73060; J2270

== ENCOUNTER 2022-10-04 11:46 | Emergency (ER) | payer MEDICAID ==
[~2022-10-04] VITALS: Ht 160 cm; Wt 77.1 kg
[~2022-10-04 11:46] MED LIST changes: +HYDR-4209 PO; +KETO10TA2 PO
[2022-10-04 11:50] VITALS: BP 116/82
--- NOTE | 2022-10-04 11:50 | NUR ---
BIBS W/ C/O WORSENING RIGHT ARM FRACTURE; STILL UNABLE TO GET ORTHO APPOINTMENT.
[2022-10-04] MEDS ORDERED: oxyCODONE/APAP (5/325 MG) 1 UDTAB TABLET PO ONE (12:30)
[2022-10-04] MEDS ORDERED: oxyCODONE/APAP (5/325 MG) 1 UDTAB TABLET ONE (12:57)
[2022-10-04] MEDS ORDERED: KETOROLAC TROMETHAMINE INJ 30 MG/ML VIAL ONE (12:57)
[2022-10-04] MEDS ORDERED: KETOROLAC TROMETHAMINE INJ 30 MG/ML VIAL IM ONE (13:00)
--- NOTE | 2022-10-04 13:03 | NUR ---
PERCOCET PO AND TORADOL IM GIVEN INDICATED, OLIVA WELL.
[2022-10-04] MEDS ORDERED: OXYC-128 PO (13:19)
--- NOTE | 2022-10-04 13:27 | NUR ---
Patient discharged to home in stable condition. Written and verbal after care instructions given. Patient verbalizes understanding of instruction.
== END 2022-10-04 13:32 | disposition home or self-care (01) ==
LOC: ER 11:52
DX: S42.351A Displaced comminuted fracture of shaft of humerus, right arm, initial encounter for closed fracture (principal); F41.9 Anxiety disorder, unspecified; F17.200 Nicotine dependence, unspecified, uncomplicated; W01.0XXA Fall on same level from slipping, tripping and stumbling without subsequent striking against object, initial encounter; Y93.89 Activity, other specified; Y92.89 Other specified places as the place of occurrence of the external cause; Y99.8 Other external cause status
CPT/HCPCS: 99283; 96372; J1885